=== PATIENT | female | born 1950 | race Caucasian/White ===

== ENCOUNTER 2017-05-27 07:08 | Inpatient (IN) | payer BC, OTHER ==
[~2017-05-27] VITALS: Ht 177.8 cm; Wt 123.3 kg
[~2017-05-27 07:08] MED LIST: CPR500 PO; MIRA1TAB3 PO; OMEP20CA9 OR; RISP-99 PO; SIMV20TA2 PO; WARF5TAB90 PO
[2017-05-27 13:15] VITALS: BP 147/84; PULSE 74; TEMP 36.9; O2SAT 93; Ht 177.8 cm; Wt 123.3 kg
[2017-05-27] MEDS ORDERED: MoRPHine SULFATE 2 MG/ML CARP IV PRN (13:30)
[2017-05-27] MEDS ORDERED: NITROGLYCERIN 0.4 MG SL PER TAB CHARGE SL PRN (13:30)
[2017-05-27] MEDS ORDERED: VANCOMYCIN CONSULT ACTIVE PRN (13:30)
[2017-05-27] MEDS ORDERED: ONDANSETRON INJ 2 MG/ML 2 ML VIAL IV PRN (13:30)
[2017-05-27] MEDS ORDERED: POLYETHYLENE (MIRALAX) 17 GM PACK PO PRN (13:30)
[2017-05-27] MEDS ORDERED: TAMS0.4C38 PO (13:44)
[2017-05-27] MEDS ORDERED: RANI150C4 PO (13:44)
[2017-05-27] MEDS ORDERED: SERT50TA PO (13:44)
[2017-05-27] MEDS ORDERED: MOML PO (13:44)
[2017-05-27] MEDS ORDERED: CHLO0.122 PO (13:44)
[2017-05-27] MEDS ORDERED: ARTIOIN OP (13:44)
[2017-05-27] MEDS ORDERED: AZIT250T PO (13:44)
--- NOTE | 2017-05-27 14:02 | History and Physical ---
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 Pt presents from [facility] as direct transfer for management of NSTEMI, Left lower lobe pneumonia, and urinary tract infection. The patient is a resident of [facility] The patient notes her symptoms initially began last Wednesday, with increasing cough and shortness of breath with any movement. She was placed on a z-pack at that time which she started Wednesday morning. She reports slight worsening of shortness of breath, nonproductive cough, low grade fever of 100degrees, and was found to be hypoxic on room air at 80%, she was placed on 2L and improved to 88% at [facility]. CXR indicated pulmonary edema in the right, along with patchy infiltrate on the LLL. The patients main complaint at this time is fatigue. Lactic acid was negative at 0.8. She was not placed on fluids due to pulmonary edema. EKG was completed and showed ST wave inversions in the anterior and inferior leads. She denies any type of chest pain, tightness, palpitation of flutter. She has no reproducible chest pain on exam. Her initial Trop at 0428 was 0.92. She was not started on anticoagulation at [facility]. Her last hgb was completed on 04/13 and was 11.3, and with am labs was 10.5. Her INR was therapeutic at 2.02 and received the last dose of coumadin last evening. Past Medical/Surgical History Medical Problems: (1) CVA (cerebral vascular accident) (2) ILIANA (generalized anxiety disorder) (3) GERD (gastroesophageal reflux disease) (4) HLD (hyperlipidemia) (5) Hypothyroidism (6) late effect from hx of CVA (7) MDD (major depressive disorder) (8) need to r/o CVA, frequent fall (9) Vaginal bleeding Surgical Problems: (1) History of hysterectomy (2) Hx of appendectomy Social History Smoking Status: Former Smoker Smokeless Tobacco Use: No Alcohol Use: none Drug Use: none Marital Status: Housing status: snf Occupational Status: retired Immunizations History of Influenza Vaccine: N/A History of Tetanus Vaccine?: No History of Pneumococcal: No History of Hepatitis B Vaccine: No Multi-Drug Resistant Organisms History of MDRO: No Allergies Coded Allergies: No Known Allergies (Verified , 01/09/14) Home Medications Scheduled Artificial Tears Oph Oint (Lacri-Lube Sop Oph Oint), 1 DROP OP TID Azithromycin (Zithromax), 250 MG PO DAILY Chlorhexidine Gluconate (Mouth (Periogard), 30 ML PO HS Ciprofloxacin (Cipro), 500 MG PO BID Mirabegron (Myrbetriq Er), 50 MG PO DAILY Omeprazole (Prilosec), 20 MG OR DAILY Ranitidine Hcl (Ranitidine Hcl), 1 CAP PO DAILY Risperidone (Risperidone), 0.5 MG PO BID Sertraline (Zoloft), 1 TAB PO DAILY Simvastatin (Zocor), 20 MG PO QPM Warfarin Sodium (Coumadin), 5 MG PO DAILY Scheduled PRN Furosemide (Lasix), 1 TAB PO DAILY PRN for edema Miscellaneous Medications Magnesium Hydroxide (Milk Of Magnesia), 30 ML PO Tamsulosin Hcl (Flomax), 0.4 MG PO Review of Systems Constitutional: + fever, + fatigue, No chills, No sweats Eyes: No worsening of vision ENT: + problem reported (dry mouth), No unusual epistaxis, No nasal symptoms, No sore throat, No tinnitus, No trouble swallowing Respiratory: + cough, + wheezing, + dyspnea on exertion, + dyspnea at rest, No sputum Cardiovascular: No chest pain, No orthopnea, No palpitations Abdomen: + problem reported (last BM was 2 nights ago), No pain, No nausea, No vomiting, No diarrhea, No constipation Musculoskeletal: + swelling (chronic in LLE), + problem reported, No joint pain Genitourinary - Female: + urinary incontinence, No dysuria, No urinary frequency, No urinary urgency Neurologic: + problem reported (left sided hemiplegia), No numbness/tingling Psychiatric: + depression symptoms, + anxiety Endocrine: + fatigue Integumentary: No rash, No itch Physical Exam Vital Signs Date Time Temp Pulse Resp B/P (MAP) Pulse Ox O2 Delivery O2 Flow Rate FiO2 05/27/17 13:15 36.9 74 22 147/84 General Appearance: WD/WN, no apparent distress, + obese, + pertinent finding ( left sided facial droop, chronic, seems to keep left eye shut) Eyes: PERRL, + abnormal EOM (has difficulty concentrating gaze), + pertinent finding (MMM) ENT: hearing grossly normal, pharynx normal Neck: supple, no JVD, no carotid bruits Respiratory/Chest: + pertinent finding (on 2 L via NC, + coarse rales throughout the right field and left upper field, + diminished breath sounds in Left base, + faint expiratory wheeze, + nonproductive cough) Cardiovascular: regular rate, rhythm, no JVD, normal peripheral pulses, + systolic murmur (faint) Abdomen/GI: normal bowel sounds, non tender, soft Extremities/Musculoskelatal: normal inspection, no calf tenderness, + pertinent finding (Bilateral LE edema, R= 1+ pitting, L= 2+ pitting) Neurologic/Psych: alert, normal mood/affect, oriented x 3 Skin: normal color, warm/dry Diagnostics Laboratory Results Results Past 24 Hours Test 05/27/17 13:22 05/27/17 13:39 05/27/17 13:56 Range/Units Microbiology Results 05/27/17 Blood Culture, Ordered Pending 05/27/17 Blood Culture, Ordered Pending 05/27/17 MRSA DNA Surveillance Screen, Received Pending EKG Normal sinus rhythm ST & T wave abnormality, consider inferior ischemia Abnormal ECG When compared with ECG of 09-JAN-2014 17:10, T wave inversion now evident in Inferior leads T wave inversion now evident in Anterior leads Vent. 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 Pt presents from [facility] as direct transfer for management of NSTEMI, Left lower lobe pneumonia, and urinary tract infection. NSTEMI - EKG was completed and showed ST wave inversions in the anterior and inferior leads. She denies any type of chest pain, tightness, palpitation of flutter. She has no reproducible chest pain on exam. - initial Trop at 0428 was 0.92. Trend x 2 more sets - She was not started on other anticoagulation at [facility]. Her last hgb was completed on 04/13 and was 11.3, and with am labs was 10.5. Pt has hx of GI bleed with jag weisse tear per EGD done during last admit at OSH Apr 08-. - On coumadin: INR =2.02, received the last dose of coumadin last evening. Home dosing is 5 mg daily. - Check Echo - Cardiology consult LLL pneumonia - Started on Levaquin at OSH, continue. Will also add vancomycin pending MRSA swab since she is a SNF resident - [place], mucinex, O2 protocol - Check portable CXR now, OSH CXR indicated pulmonary edema in the right, along with patchy infiltrate on the LLL. - WBC was 7.9, lactic acid neg at 0.8, negative flu at OSH- follow AM labs UTI - Pt reports chronic incontinence - UA from OSH is dirty, will need to follow up with culture/sensitivity results within 48 hours. Hx R CVA with residual left sided hemiparesis/hemiplegia - Continue statin therapy, continue Coumadin, follow INR - Bed rest, frequent turn and repo to avoid pressure ulcers - Stable Hx GI bleed - Continue on omeprazole 20 mg daily, ranitidine 150 mg tab -- caution for GI bleed if alternative anticoagulation per Cardiology MDD ILIANA - Continue sertraline 50 mg daily, risperdal 0.5 mg bid DVT ppx: Teds, scds, Coumadin CODE STATUS: DNR Disposition: The patient is a resident of [facility], to assist with dc planning. Resident Physician Supervision Note: Pt evaluated independently. I discussed the case with the PA and agree with the findings and plan as documented in the note. Any exceptions or clarifications are listed here: 66 y/o F Hx CVA - left sided hemiparesis, HLD, hypothyroidism, morbid obesity, GERD, recent hx of GI bleed on Coumadin due to MW tear - direct admission form [facility] due to PNM, UTI, NSTEMI. OE AAO x 3 S1,2 R Limited lung exam due to habitus and coarse air noises - no clear crackles or wheezing NT, ND BL edema present L hemiparesis P: Elevated trop - NSTEMI - Pt is anticoagulated with Coumadin - trop is marginal so may be consistent with demand in presence of PNM - echo ordered, cardio consult requested - cont Statin Tx - trop will be trended. PNM - placed on Levaquin Vanc due to [place] residence - [facility] provided - 02 protocol UTI - should be covered by prescribed antibiotics Documented By: Juan Antonio Wiggins Level of Care Telemetry Advanced Directives Existing Advance Directive: Yes Existing Living Will: Yes Existing Power of Under Trimmer: Yes Existing Health Care Proxy: Yes Resuscitation Status DO NOT RESUSCITATE VTE Prophylaxis VTE Risk Assessment Done? Y/N: Yes Risk Level: Low Given or contraindicated: T.E.D. Stockings, SCD's
--- NOTE | 2017-05-27 14:22 | DIAGNOSTIC IMAGING REPORT ---
CHEST ONE VIEW PORTABLE CLINICAL HISTORY: asses pulm edema COMPARISON STUDY: 05/27/2017 5:42 AM FINDINGS: Stable findings of pulmonary edema. Superimposed density left lung base. Mild stable cardia megaly. IMPRESSION: Stable findings of pulmonary edema. Unchanging consolidative infiltrate versus lesion left base. The above report was generated using voice recognition software. It may contain grammatical, syntax or spelling errors. Electronically signed by: Theodore Barragan M.D. 05/27/2017 2:20 PM Dictated Date/Time: 05/27/2017 2:19 PM
[2017-05-27] MEDS ORDERED: WARF5TAB90 PO (14:32)
[2017-05-27] MEDS ORDERED: FURO-85 PO (14:32)
[2017-05-27] MEDS ORDERED: VANCOMYCIN INJ 2,750 MG in SODIUM CHLORIDE 0.9% 500ML 500 ML IV SCH (14:45)
[2017-05-27 14:46] VITALS: PULSE 72; O2SAT 94
--- NOTE | 2017-05-27 14:52 | Pharmacy Progress Note ---
Pharmacy Abx Initial Consult Date of Service May 27, 2017. Pharmacy Dosing Scope Date of Consult: 05/27/17 Consultation requested by: Mitchell Weems PAC Pharmacy is consulted to initiate IV VANCOMYCIN therapy, order appropriate labs and adjust drug dose/frequency. Subjective The patient is a 66 year old female admitted on May 27, 2017 at 13:16 as a direct admit from [facility] secondary to NSTEMI, LLL PNA and UTI Objective Height (Feet): 5 Height (Inches): 10.00 Weight (Kilograms): 127.800 Vital Signs (Past 12Hrs) Vital Signs Past 12 Hours Date Time Temp Pulse Resp B/P (MAP) Pulse Ox O2 Delivery O2 Flow Rate FiO2 05/27/17 13:15 36.9 74 22 147/84 93 Nasal Cannula 3.0 Lab Results (24Hrs) Laboratory Tests (24 Hours) Test 05/27/17 14:15 Micro Results Date/Time Source Procedure Growth Status 05/27/17 14:14 Blood Blood Culture Pending Received 05/27/17 13:53 Blood Blood Culture Pending Received 05/27/17 13:30 Nasal MRSA DNA Surveillance Screen Pending Received Risk Factors for Resistance * Resident in a longterm or extended-care facility * Antimicrobial use within the last 90 days (Azithromycin 2 days PAINTER SET, and possibly Cipro?) Assessment & Plan Assessment * 66 year old female transferred from [facility] for LLL pneumonia, UTI and NSTEMI * I did contact [facility], the only ABX therapy she has received thus far is Levofloxacin 750mg IV x 1 this AM * [facility] reported a SCr of 0.6. She does have h/o CVA and L hemiparesis. Est CrCl likely 120+ cc/min but difficult to estimate w/ this body habitus * Sat 93% 3 L NC, no hypotension noted * CXR read as pulm edema, + consolidative infiltrate vs lesion of L base * Blood Cx's and nasal swab for MRSA ordered Plan Vancomycin IV * Loading dose: 2750 mg (~21.5 mg/kg) * Maintenance dose: 1750 mg IV (13.7 mg/kg) every 10 hours * Goal trough level for pulm infxn : 15 to 20 mcg/mL * Trough level ordered w/ 3rd or 4th maintenance dose if therapy to continue * p'kinetic estimates: Vd 0.55-0.6L/kg; half-life ~7-8 hours Pharmacy will continue to follow and will adjust dose/frequency as necessary. Thank you.
[2017-05-27 15:25] LABS: ALBUMIN 2.9 gm/dl (3.4-5.0); ALKALINE PHOSPHATASE 80 U/L (45-117); ALT/SGPT 38 U/L (12-78); AST/SGOT 31 U/L (15-37); TOTAL PROTEIN 7.2 gm/dl (6.4-8.2)
[2017-05-27 15:38] LABS: INR 2.1 (0.9-1.1)
[2017-05-27 16:00] VITALS: BP 154/84; PULSE 77; TEMP 36.9; O2SAT 92
[2017-05-27] MEDS ORDERED: LEVOFLOXACIN / D5W 750 MG in PREMIXED IN D5W 150 ML IV SCH (16:00)
[2017-05-27] MEDS: WARFARIN SOD 5 MG TAB PO SCH (16:09)
[2017-05-27 16:19] LABS: HEMATOCRIT 33.1 % (37-47); HEMOGLOBIN 10.6 g/dL (12.0-16.0); MEAN CELL VOLUME 90.9 fL (80-100); MEAN CORPUSCULAR HEMOGLOBIN 29.1 pg (25-34); MEAN PLATELET VOLUME 10.1 fL (7.4-10.4); PLATELET COUNT 241 K/uL (130-400); RED CELL DISTRIBUTION WIDTH CV 14.4 % (11.5-14.5); WHITE BLOOD COUNT 8.02 K/uL (4.8-10.8)
--- NOTE | 2017-05-27 19:03 | CARDIOLOGY CONSULTATION ---
DATE OF CONSULTATION: 05/27/2017 TIME: 18:08 p.m. ORDERING CLINICIAN: Cyndy Weems PA-C REASON FOR CONSULTATION: Non-ST elevation myocardial infarction. HISTORY OF PRESENT ILLNESS: Mrs. Pereira is a pleasant 66-year-old female with history significant for stroke x2, dyslipidemia, and recent GI bleed secondary to Ariana-Taylor tear following episodes of vomiting. She presented to [facility] and was transferred from that facility to this facility today due to non-ST elevation myocardial infarction. She has been diagnosed with a left lower lobe pneumonia and urinary tract infection. She resides at a fdc over the past several years due to her stroke. She denied any chest pain, but has had increasing shortness of breath and cough over the past 4 days. Her breathing is much worse when trying to lay flat. She is sitting currently in bed with her had quite elevated due to her shortness of breath. She does have a productive cough with yellow/light green sputum. She also has noted some bloody mucus when blowing her nose. She has had low grade fevers since Wednesday, 2 days ago. She has also noted episodes of diaphoresis and feeling hot, but denies any shaking chills. She denies syncope, near syncope, palpitations. She has chronic left lower extremity edema which she believes is stable but has been told that she now has right lower extremity edema. She was found to be hypoxic on room air, apparently 80% and was placed on supplemental oxygen. A chest x-ray done at [facility] reported pulmonary edema on the right side with patchy infiltrate on the left lower lobe. She had a troponin drawn and was found to be elevated at 0.92. She has been taking Coumadin chronically ever since her stroke as far as she can remember. She does not recall ever being diagnosed with atrial fibrillation or flutter. She does not believe that she follows with a high worker as an outpatient. She does not recall ever having a cardiac catheterization or stress test. In regards to her GI bleed, this occurred in April when she was hospitalized in 04/08/2017 to 04/12/2017 with hematemesis/coffee emesis. She describes having several episodes of vomiting before developing a small amount of blood with her 1 or 2 last episodes of vomiting. She apparently underwent EGD and was apparently found to have a Ariana-Taylor tear. She was on anticoagulation, which was reportedly held for approximately 1 week following the bleed but then restarted. She had been treated over the past 2 days with a Z-TIFFANY, but has not noted any improvement in her symptoms. REVIEW OF SYSTEMS: As above and review of systems otherwise negative/unremarkable. PAST MEDICAL HISTORY: 1. Stroke x2. 2. Chronic anticoagulation following her stroke. 3. Anxiety disorder. 4. GERD. 5. Dyslipidemia. 6. Hypothyroidism. 7. Major depressive disorder. 8. Ariana-Taylor tear April 2017. 9. Status post hysterectomy. 10. Status post appendectomy. HOME MEDICATIONS: Reported as azithromycin, ciprofloxacin, omeprazole, risperidone, sertraline, simvastatin 20 mg and Coumadin. She does not recall who manages her Coumadin. INPATIENT MEDICATIONS: Currently include needles oxytocin 750 mg IV q. 12 hours, Protonix 40 mg daily, ranitidine 150 mg daily, risperidone 0.5 mg p.o. b.i.d., simvastatin 20 mg daily, Zoloft 50 mg daily, vancomycin 1.75 mg IV q. 10 hours and Coumadin 5 mg daily. ALLERGIES: No known drug allergies. SOCIAL HISTORY: She quit smoking a few years ago at the time of her stroke. She denies alcohol or drugs. She is . Her lives at home alone while she currently resides at [facility]. She has 3 children. FAMILY HISTORY: Mother had diabetes and from some type of heart disorder at the age of approximately 80 years. PHYSICAL EXAMINATION: VITAL SIGNS: Temperature 36.9 degrees, heart rate 77 beats per minute, respiration rate 16, blood pressure 154/84 mmHg, oxygen saturation is 92% on 4 liters per nasal cannula. Weight 127.8 kg. GENERAL: In no acute distress, alert and oriented. HEENT: Anicteric sclerae. NECK: JVD to the mandible sitting nearly upright. No bruits were auscultated; however, there are coarse airway sounds Normal carotid upstrokes bilaterally. CARDIAC EXAMINATION: PMI was nonpalpable. There was no ventricular heave. Regular, normal S1, S2. No audible murmurs, rubs or gallops. LUNGS: Decreased breath sounds throughout with scattered rhonchi. ABDOMEN: Obese, soft, nontender, nondistended. Normoactive bowel sounds. EXTREMITIES: 2+ radial pulses bilaterally. 2+ dorsalis pedis pulses bilaterally. No cyanosis. 2+ bilateral pedal edema and otherwise 1+ bilateral lower extremity edema to the knees. PSYCHIATRIC: Affect appears appropriate. ECG upon presentation demonstrated sinus rhythm at 70 beats per minute. Nonspecific ST/T wave abnormality. ECG personally reviewed. Chest x-ray image personally reviewed. Left lung opacity. Prominent vascular markings. Radiology has interpreted this as pulmonary edema and unchanging consolidative infiltrative process versus lesion in the left base lung. LABORATORY DATA: AST 31, ALT 38, troponin 0.739, albumin 2.9. WBC 8.02, hemoglobin 10.6, platelets 241. INR is 2.1. Blood cultures are currently pending. Most recent echocardiogram is on file was from 01/10/2014. This reported normal biventricular systolic function. No significant valvular abnormalities. ASSESSMENT AND PLAN: 1. Acute diastolic congestive heart failure: She appears to be hypervolemic on exam and is symptomatic. Recommend IV Lasix 40 mg IV b.i.d. for now and reassess volume status and diuretic response. Low sodium diet, strict I's and O's and daily weights as recommended. TSH ordered. 2. Shortness of breath: Likely multifactorial. She also is being treated for pneumonia and has had low grade fevers and does appear to have an infiltrate on chest x-ray. Treatment as per primary service. 3. Non-ST elevation myocardial infarction: Her troponin levels are elevated and do meet criteria for myocardial infarction; however, she did not present with angina and did not present with acute coronary syndrome. This is likely secondary to demand ischemia with infection and also hypervolemia. Recommend aspirin 81 mg daily as she does have risk factors for underlying coronary artery disease, if there are no contraindications to aspirin therapy. Recommend high intensity statin therapy in place of simvastatin for her dyslipidemia. There is no indication for urgent cardiac catheterization at this time. Recommend treatment of her other acute issues. Echocardiogram is pending. 4. Hypertension: Blood pressure is mildly elevated. Diuretic is recommended, which may improve her blood pressure. Would not initiate beta guilherme therapy currently in her hypervolemic state with acute congestive heart failure exacerbation. 5. Dyslipidemia: Replace simvastatin with high intensity statin in the form of atorvastatin. 6. Disposition: Cardiology will continue to follow. Highly complex medical issues. The patient's care has been discussed with Ms. Weems. Thank for allowing me to participate in care of Mrs. Pereira.
[2017-05-27] MEDS: FUROSEMIDE INJ 40 MG in SYRINGE 0 ML IV SCH (19:12)
[2017-05-27] MEDS: LEVALBUTEROL 1.25MG/3ML NEB INH SCH (19:50)
[2017-05-27 19:52] VITALS: PULSE 87; O2SAT 95
[2017-05-27 20:00] VITALS: O2SAT 95
[2017-05-27] MEDS ORDERED: SIMVASTATIN 20 MG TAB PO SCH (21:00)
[2017-05-27 21:08] VITALS: BP 151/80; PULSE 75; TEMP 36.9; O2SAT 94
[2017-05-27] MEDS: ACETAMINOPHEN 325 MG TAB PO PRN (21:41)
[2017-05-27] MEDS: ATORVASTATIN 40 MG TAB PO SCH (21:42)
[2017-05-27] MEDS: RISPERIDONE 0.5 MG TAB PO SCH (21:42)
[2017-05-27] MEDS: GUAIFENESIN 600 MG TABCR PO SCH (21:42)
[2017-05-28] VITALS (11 sets, daily range): BP systolic 125–163; BP diastolic 64–104; PULSE 61–81; TEMP 36.4–37; O2SAT 90–97
[2017-05-28] MEDS: LEVALBUTEROL 1.25MG/3ML NEB INH SCH ×4 (01:46→19:12)
[2017-05-28] MEDS ORDERED: VANCOMYCIN INJ 1,750 MG in SODIUM CHLORIDE 0.9% 500ML 500 ML IV SCH (02:00)
[2017-05-28] MEDS ORDERED: LEVOFLOXACIN / D5W 750 MG in PREMIXED IN D5W 150 ML IV SCH (06:00)
[2017-05-28 06:46] LABS: BASO % 0.1 %; BASO ABS # 0.01 K/uL (0-0.2); HEMATOCRIT 33.9 % (37-47); HEMOGLOBIN 10.6 g/dL (12.0-16.0); IG# 0.04 K/uL (0.00-0.02); LYMPH % 20.2 %; LYMPH ABS # 1.73 K/uL (1.2-3.4); MEAN CELL VOLUME 92.1 fL (80-100); MEAN CORPUSCULAR HEMOGLOBIN 28.8 pg (25-34); MEAN CORPUSCULAR HGB CONC 31.3 g/dl (32-36); MEAN PLATELET VOLUME 10.2 fL (7.4-10.4); MONO % 7.9 %; MONO ABS # 0.68 K/uL (0.11-0.59); NEUT % 71.3 %; NEUT ABS # 6.11 K/uL (1.4-6.5); PLATELET COUNT 234 K/uL (130-400); RED CELL DISTRIBUTION WIDTH CV 14.4 % (11.5-14.5); RED CELL DISTRIBUTION WIDTH SD 49.3 fL (36.4-46.3); WHITE BLOOD COUNT 8.57 K/uL (4.8-10.8)
[2017-05-28 06:59] LABS: INR 2.5 (0.9-1.1)
[2017-05-28] MEDS ORDERED: PERFLUTREN LIPID MICROSPHERE (DEFINITY) IV ONE (07:05)
[2017-05-28 07:12] LABS: HEMOGLOBIN A1C 5.8 % (4.5-5.6)
[2017-05-28 07:13] LABS: CALCIUM 7.8 mg/dl (8.5-10.1); CREATININE 0.74 mg/dl (0.60-1.20); POTASSIUM 3.3 mmol/L (3.5-5.1)
[2017-05-28] MEDS: GUAIFENESIN 600 MG TABCR PO SCH ×2 (07:42→21:29)
[2017-05-28] MEDS: RANITIDINE HCL 150 MG TAB PO SCH (07:43)
[2017-05-28] MEDS: ASPIRIN 81 MG ECTAB PO SCH (07:43)
[2017-05-28] MEDS: SERTRALINE HCL 50 MG TAB PO SCH (07:43)
[2017-05-28] MEDS: RISPERIDONE 0.5 MG TAB PO SCH ×2 (07:43→21:29)
[2017-05-28] MEDS: PANTOprazole SOD 40 MG TAB PO SCH (07:43)
[2017-05-28] MEDS: MIRABEGRON ER 25 MG TAB PO SCH (07:43)
[2017-05-28] MEDS: FUROSEMIDE INJ 40 MG in SYRINGE 0 ML IV SCH ×2 (07:44→16:28)
--- NOTE | 2017-05-28 08:10 | Family Medicine Progress Note ---
Progress Note Date of Service May 28, 2017.
[2017-05-28] MEDS ORDERED: POTASSIUM CHLORIDE 20 MEQ TABCR PO STA (08:38)
--- NOTE | 2017-05-28 10:41 | DIAGNOSTIC IMAGING REPORT ---
CHEST ONE VIEW PORTABLE CLINICAL HISTORY: follow-up congestion + left infiltrate pneumonia COMPARISON STUDY: 05/27/2017 FINDINGS: Unchanging parenchymal infiltrative process left lung base. Mild improvement of the patient's component of congestive failure/pulmonary edema. Slight decrease in prominence of the pulmonary vasculature. IMPRESSION: 1. Slight improvement of the findings of congestive failure. 2. Unchanging left basilar infiltrate. The above report was generated using voice recognition software. It may contain grammatical, syntax or spelling errors. Electronically signed by: Theodore Barragan M.D. 05/28/2017 10:40 AM Dictated Date/Time: 05/28/2017 10:39 AM
--- NOTE | 2017-05-28 12:12 | ECHOCARDIOGRAM REPORT ---
*NOTICE TO RECEIVING LIBERTARIAN AGENCY This information is strictly Confidential and protected under [place] law. [place] law prohibits you from making any further disclosure of this information unless further disclosure is expressly permitted by the written consent of the person to whom it pertains or is authorized by law. A general authorization for the release of medical or other information is not sufficient for this purpose. Hospital accepts no responsibility if the information is made available to any other person, INCLUDING THE PATIENT. Interpretation Summary * Name: BROOK ROBLES Study Date: 05/28/2017 06:34 AM BP: 163/104 mmHg * Patient Location: C.2E\S\E210\S\1 HR: 61 * : 1950 (M/d/yyyy) Gender: Female Height: 70 in * Age: 66 yrs Ethnicity: [place] Weight: 281 lb * Ordering Physician: Michelle Weems * Referring Physician: No Doctor, Assigned * Performed By: Gabrielle Allred RDCS * * Reason For Study: NSTEMI * BSA: 2.4 m2 * -- Conclusions -- * 1. Mildly dilated left ventricle with low-normal systolic function. EF 50-55%. No definite regional wall motion abnormalities. No left ventricular hypertrophy. Type 2 diastolic dysfunction. * 2. The left atrium is moderately dilated. * 3. There is mild mitral regurgitation. * 4. Elevated estimated right atrial pressure; 15mmHg. * 5. Technically difficult study, enhanced with IV Definity. * 6. Compared to prior study on 01/10/2014, LV systolic function is now low-normal. Procedure Details * A complete two-dimensional transthoracic echocardiogram was performed (2D, M-mode, Doppler and color flow Doppler). * A contrast injection of Definity was performed to improve assessment of LV function. * Contrast was injected into an intravenous site in the right arm. * One vial of Definity ultrasound contrast was diluted in normal saline to a total volume of 10 ml. A total of '3' ml of solution was administered during imaging. * Lot # [id number] of Definity utilized for procedure. * Expiration date 1 MAY 24. * The attending nurse who injected the contrast agent was Jay Manzo RN. Left Ventricle * Mildly dilated left ventricle with low-normal systolic function. EF 50-55%. No definite regional wall motion abnormalities. No left ventricular hypertrophy. Type 2 diastolic dysfunction. Right Ventricle * The right ventricle is normal in size and function. * The right ventricular systolic function is normal as assessed by tricuspid annular plane systolic excursion (TAPSE) (normal >1.5 cm). Atria * The left atrium is moderately dilated. * Right atrial size is normal. * There is no evidence of atrial septal defect, but resolution does not allow assessment for a patent foramen ovale. Mitral Valve * There is no mitral valve stenosis. * There is mild mitral regurgitation. Tricuspid Valve * The tricuspid valve is not well visualized. * There is no tricuspid stenosis. * Significant tricuspid regurgitation is absent. Aortic Valve * The aortic valve is trileaflet. * No hemodynamically significant valvular aortic stenosis. * No aortic regurgitation is present. Pulmonic Valve * The pulmonary valve is inadequately visualized, but the Doppler data is adequate for interpretation. * There is no pulmonic valvular stenosis. * Trace pulmonic valvular regurgitation. Great Vessels * The aortic root is normal size. * Ascending aorta of normal dimension Pericardium/Pleural * There is no pericardial effusion. Great Vessels * Dilated IVC with reduced inspiratory collapse. MMode 2D Measurements and Calculations IVSd 0.97 cm LVIDd 5.5 cm LVIDs 4.1 cm LVPWd 0.91 cm IVS/LVPW 1.1 FS 25.9 % EDV(Teich) 146.6 ml ESV(Teich) 72.7 ml EF(Teich) 50.4 % EDV(cubed) 165.2 ml ESV(cubed) 67.1 ml EF(cubed) 59.4 % LV mass(C)d 196.0 grams LV mass(C)dI 81.3 grams/m\S\2 SV(Teich) 73.9 ml SI(Teich) 30.7 ml/m\S\2 SV(cubed) 98.1 ml SI(cubed) 40.7 ml/m\S\2 Ao root diam 3.7 cm Ao root area 10.5 cm\S\2 ACS 1.8 cm LA dimension 3.1 cm asc Aorta Diam 3.1 cm LA/Ao 0.86 LVOT diam 2.0 cm LVOT area 3.2 cm\S\2 LVAd ap4 42.3 cm\S\2 LVLd ap4 8.9 cm EDV(MOD-sp4) 162.3 ml EDV(sp4-el) 170.2 ml LVAs ap4 28.1 cm\S\2 LVLs ap4 7.8 cm ESV(MOD-sp4) 83.0 ml ESV(sp4-el) 85.7 ml EF(MOD-sp4) 48.9 % EF(sp4-el) 49.7 % LVAd ap2 37.0 cm\S\2 LVLd ap2 9.0 cm EDV(MOD-sp2) 125.3 ml EDV(sp2-el) 129.9 ml LVAs ap2 21.5 cm\S\2 LVLs ap2 7.6 cm ESV(MOD-sp2) 52.4 ml ESV(sp2-el) 52.1 ml EF(MOD-sp2) 58.2 % EF(sp2-el) 59.9 % LVLd %diff 1.8 % EDV(MOD-bp) 150.7 ml LVLs %diff -0.23 % ESV(MOD-bp) 64.5 ml EF(MOD-bp) 57.2 % SV(MOD-sp4) 79.3 ml SI(MOD-sp4) 32.9 ml/m\S\2 SV(MOD-sp2) 73.0 ml SI(MOD-sp2) 30.3 ml/m\S\2 SV(MOD-bp) 86.2 ml SI(MOD-bp) 35.7 ml/m\S\2 SV(sp4-el) 84.5 ml SI(sp4-el) 35.1 ml/m\S\2 SV(sp2-el) 77.8 ml SI(sp2-el) 32.3 ml/m\S\2 Doppler Measurements and Calculations MV E max sada 98.5 cm/sec MV A max sada 63.0 cm/sec MV E/A 1.6 MV dec time 0.20 sec Ao V2 max 117.7 cm/sec Ao max PG 5.5 mmHg Ao max PG (full) 2.3 mmHg ANDRA(V,A) 2.4 cm\S\2 ANDRA(V,D) 2.4 cm\S\2 LV V1 max PG 3.2 mmHg LV V1 max 89.4 cm/sec PA V2 max 82.0 cm/sec PA max PG 2.7 mmHg PA acc slope 319.6 cm/sec\S\2 PA acc time 0.20 sec PI max sada 108.7 cm/sec PI max PG 4.7 mmHg PI dec slope 141.0 cm/sec\S\2 PI P1/2t 225.8 msec RAP systole 15.0 mmHg PA pr(Accel) -10.58 mmHg
[2017-05-28] MEDS ORDERED: METOPROLOL SUCC 25MG EXT REL TAB PO STA (12:14)
--- NOTE | 2017-05-28 12:16 | ECHOCARDIOGRAM REPORT ---
*NOTICE TO RECEIVING CONSTITUTION PARTY AGENCY This information is strictly Confidential and protected under [place] law. [place] law prohibits you from making any further disclosure of this information unless further disclosure is expressly permitted by the written consent of the person to whom it pertains or is authorized by law. A general authorization for the release of medical or other information is not sufficient for this purpose. Hospital accepts no responsibility if the information is made available to any other person, INCLUDING THE PATIENT. Interpretation Summary * Name: BROOK ROBLES Study Date: 05/28/2017 06:34 AM BP: 163/104 mmHg * Patient Location: C.2E\S\E210\S\1 HR: 61 * : 1950 (M/d/yyy) Gender: Female Height: 70 in * Age: 66 yrs Ethnicity: [place] Weight: 281 lb * Ordering Physician: Michelle Weems * Referring Physician: No Doctor, Assigned * Performed By: Gabrielle Allred RDCS * * Reason For Study: NSTEMI * BSA: 2.4 m2 * -- Conclusions -- * 1. Mildly dilated left ventricle with low-normal systolic function. EF 50-55%. No definite regional wall motion abnormalities. No left ventricular hypertrophy. * 2. The left atrium is moderately dilated. * 3. There is mild mitral regurgitation. * 4. Elevated estimated right atrial pressure; 15mmHg. * 5. Technically difficult study, enhanced with IV Definity. * 6. Compared to prior study on 01/10/2014, LV systolic function is now low-normal. Procedure Details * A complete two-dimensional transthoracic echocardiogram was performed (2D, M-mode, Doppler and color flow Doppler). * A contrast injection of Definity was performed to improve assessment of LV function. * Contrast was injected into an intravenous site in the right arm. * One vial of Definity ultrasound contrast was diluted in normal saline to a total volume of 10 ml. A total of '3' ml of solution was administered during imaging. * Lot # [id number] of Definity utilized for procedure. * Expiration date 1 MAY 24. * The attending nurse who injected the contrast agent was Jay Manzo RN. Left Ventricle * Mildly dilated left ventricle with low-normal systolic function. EF 50-55%. No definite regional wall motion abnormalities. No left ventricular hypertrophy. Type 2 diastolic dysfunction. Right Ventricle * The right ventricle is normal in size and function. * The right ventricular systolic function is normal as assessed by tricuspid annular plane systolic excursion (TAPSE) (normal >1.5 cm). Atria * The left atrium is moderately dilated. * Right atrial size is normal. * There is no evidence of atrial septal defect, but resolution does not allow assessment for a patent foramen ovale. Mitral Valve * There is no mitral valve stenosis. * There is mild mitral regurgitation. Tricuspid Valve * The tricuspid valve is not well visualized. * There is no tricuspid stenosis. * Significant tricuspid regurgitation is absent. Aortic Valve * The aortic valve is trileaflet. * No hemodynamically significant valvular aortic stenosis. * No aortic regurgitation is present. Pulmonic Valve * The pulmonary valve is inadequately visualized, but the Doppler data is adequate for interpretation. * There is no pulmonic valvular stenosis. * Trace pulmonic valvular regurgitation. Great Vessels * The aortic root is normal size. * Ascending aorta of normal dimension Pericardium/Pleural * There is no pericardial effusion. Great Vessels * Dilated IVC with reduced inspiratory collapse. MMode 2D Measurements and Calculations IVSd 0.97 cm LVIDd 5.5 cm LVIDs 4.1 cm LVPWd 0.91 cm IVS/LVPW 1.1 FS 25.9 % EDV(Teich) 146.6 ml ESV(Teich) 72.7 ml EF(Teich) 50.4 % EDV(cubed) 165.2 ml ESV(cubed) 67.1 ml EF(cubed) 59.4 % LV mass(C)d 196.0 grams LV mass(C)dI 81.3 grams/m\S\2 SV(Teich) 73.9 ml SI(Teich) 30.7 ml/m\S\2 SV(cubed) 98.1 ml SI(cubed) 40.7 ml/m\S\2 Ao root diam 3.7 cm Ao root area 10.5 cm\S\2 ACS 1.8 cm LA dimension 3.1 cm asc Aorta Diam 3.1 cm LA/Ao 0.86 LVOT diam 2.0 cm LVOT area 3.2 cm\S\2 LVAd ap4 42.3 cm\S\2 LVLd ap4 8.9 cm EDV(MOD-sp4) 162.3 ml EDV(sp4-el) 170.2 ml LVAs ap4 28.1 cm\S\2 LVLs ap4 7.8 cm ESV(MOD-sp4) 83.0 ml ESV(sp4-el) 85.7 ml EF(MOD-sp4) 48.9 % EF(sp4-el) 49.7 % LVAd ap2 37.0 cm\S\2 LVLd ap2 9.0 cm EDV(MOD-sp2) 125.3 ml EDV(sp2-el) 129.9 ml LVAs ap2 21.5 cm\S\2 LVLs ap2 7.6 cm ESV(MOD-sp2) 52.4 ml ESV(sp2-el) 52.1 ml EF(MOD-sp2) 58.2 % EF(sp2-el) 59.9 % LVLd %diff 1.8 % EDV(MOD-bp) 150.7 ml LVLs %diff -0.23 % ESV(MOD-bp) 64.5 ml EF(MOD-bp) 57.2 % SV(MOD-sp4) 79.3 ml SI(MOD-sp4) 32.9 ml/m\S\2 SV(MOD-sp2) 73.0 ml SI(MOD-sp2) 30.3 ml/m\S\2 SV(MOD-bp) 86.2 ml SI(MOD-bp) 35.7 ml/m\S\2 SV(sp4-el) 84.5 ml SI(sp4-el) 35.1 ml/m\S\2 SV(sp2-el) 77.8 ml SI(sp2-el) 32.3 ml/m\S\2 Doppler Measurements and Calculations MV E max sada 98.5 cm/sec MV A max sada 63.0 cm/sec MV E/A 1.6 MV dec time 0.20 sec Ao V2 max 117.7 cm/sec Ao max PG 5.5 mmHg Ao max PG (full) 2.3 mmHg ANDRA(V,A) 2.4 cm\S\2 ANDRA(V,D) 2.4 cm\S\2 LV V1 max PG 3.2 mmHg LV V1 max 89.4 cm/sec PA V2 max 82.0 cm/sec PA max PG 2.7 mmHg PA acc slope 319.6 cm/sec\S\2 PA acc time 0.20 sec PI max sada 108.7 cm/sec PI max PG 4.7 mmHg PI dec slope 141.0 cm/sec\S\2 PI P1/2t 225.8 msec RAP systole 15.0 mmHg PA pr(Accel) -10.58 mmHg
--- NOTE | 2017-05-28 12:27 | CARDIOLOGY PROGRESS NOTE ---
DATE: 05/28/2017 TIME: 12:09 p.m. SUBJECTIVE: She feels better from a breathing standpoint but still has orthopnea. Her breathing is significantly improved; however. She is asking when she can be discharged. She denies chest pain, syncope, near syncope, or palpitations. OBJECTIVE: VITAL SIGNS: Temperature 36.4 degrees, heart rate 70 beats per minute, respiration rate 18, blood pressure 161/91 mmHg. Oxygen saturation is 94% on room air. I's and O's negative 1.27 liters yesterday. Weight is 126.9 kg. GENERAL: No acute distress. She is alert. NECK: Elevated JVD nearly to the mandible with her head elevated at approximately 75 degrees. CARDIAC: No ventricular heave. Regular, normal S1, S2. There were no audible murmurs, rubs or gallops. LUNGS: Expiratory wheezing bilaterally. ABDOMEN: Soft, nontender, nondistended. Normoactive bowel sounds. EXTREMITIES: Trace to 1+ bilateral lower extremity edema. No cyanosis. PSYCHIATRIC: Affect appears appropriate. MEDICATIONS: Aspirin 81 mg daily, atorvastatin 40 mg at bedtime, Lasix 40 mg IV b.i.d., levofloxacin 750 mg IV q. 24 hours, potassium chloride 40 mEq x1 and then 20 mEq p.o. b.i.d., risperidone 0.5 mg p.o. b.i.d., Zoloft 50 mg daily, and Coumadin 5 mg daily. LABORATORY DATA: White blood cell count is 8.57, hemoglobin 10.6, platelets 234. INR is 2.5. Sodium 141, potassium 3.1, BUN 21, creatinine 0.74. Triglycerides 61, LDL 66, HDL 42. TSH 1.22. IMAGING DATA: Telemetry personally reviewed. She did have a nonsustained episode of what appears to be atrial tachycardia, otherwise sinus rhythm. Echocardiogram demonstrated mildly dilated left ventricle with low normal systolic function. EF 50-55%. No definite wall motion abnormalities. Moderate left atrial dilation. Mild MR. Right atrial pressure estimated at 15 mmHg. ASSESSMENT AND PLAN: 1. Non-ST elevation myocardial infarction: Likely due to demand ischemia. She did not present with acute coronary syndrome. Recommend conservative management for now with aspirin 81 mg daily. Continue high intensity statin therapy which was started during this hospitalization in place of simvastatin. Will start a low dose beta guilherme if she continues to be hypertensive. No angina. 2. Acute diastolic congestive heart failure: Continue diuresis. She feels much better with diuresis last night. Monitor potassium closely, which is being addressed by the primary hospitalist service. Low sodium diet, strict daily weights and I's and O's. 3. Shortness of breath: Likely multifactorial as she is also thought to have pneumonia and had low grade fevers as well as heart failure as noted above. 4. Hypertension: Beta guilherme therapy will be initiated today as she is doing much better from a heart failure standpoint. 5. Dyslipidemia: Continue high intensity statin therapy. 6. Mitral regurgitation: Non-severe. Can be followed over time. 7. Disposition: Cardiology will continue to follow.
[2017-05-28 12:50] LABS: INFLUENZA A PCR Neg for Influ A (NEG); INFLUENZA B PCR Neg for Influ B (NEG)
--- NOTE | 2017-05-28 14:16 | Family Medicine Progress Note ---
Progress Note Date of Service May 28, 2017. Subjective Pt evaluation today including: conversation w/ patient, physical exam, chart review, lab review Pain: None Patient reports she is feeling better since admission Denies chest pain, palpitations at this time; no events overnight Eating and drinking well No concerns per nursing. K abby this AM, is being repleted. Additional Comments: A 10 point review of systems was negative unless stated above. Medications Current Inpatient Medications Medications (Trade) Dose Ordered Sig/Gabriela Route Start Time Stop Time Status Last Admin Dose Admin Acetaminophen (Tylenol Tab) 650 mg Q4H PRN PO 05/27/17 13:30 06/26/17 13:29 05/27/17 21:41 650 MG Ondansetron HCl (Zofran Inj) 4 mg Q6H PRN IV 05/27/17 13:30 06/26/17 13:29 Nitroglycerin (Nitrostat Tab) 0.4 mg UD PRN SL 05/27/17 13:30 06/26/17 13:29 Morphine Sulfate (MoRPHine SULFATE INJ) 2 mg Q30M PRN IV 05/27/17 13:30 06/10/17 13:29 Polyethylene (Miralax Powder Packet) 17 gm DAILY PRN PO 05/27/17 13:30 06/26/17 13:29 Levalbuterol (Xopenex 1.25MG/ 3ML Neb) 1.25 mg Q6R INH 05/27/17 15:00 06/26/17 14:59 05/28/17 07:23 1.25 MG Guaifenesin (Mucinex Contr Rel Tab) 600 mg Q12 PO 05/27/17 21:00 06/26/17 20:59 05/28/17 07:42 600 MG Mirabegron (Myrbetriq Er) 50 mg DAILY PO 05/28/17 09:00 06/27/17 08:59 05/28/17 07:43 50 MG Risperidone (Risperdal Tab) 0.5 mg BID PO 05/27/17 21:00 06/26/17 20:59 05/28/17 07:43 0.5 MG Sertraline HCl (Zoloft Tab) 50 mg DAILY PO 05/28/17 09:00 06/27/17 08:59 05/28/17 07:43 50 MG Warfarin Sodium (Coumadin Tab) 5 mg DAILY@1600 PO 05/27/17 16:00 06/26/17 15:59 05/27/17 16:09 5 MG Pantoprazole Sodium (Protonix Tab) 40 mg QAM PO 05/28/17 09:00 06/27/17 08:59 05/28/17 07:43 40 MG Ranitidine HCl (zANTac TAB) 150 mg DAILY PO 05/28/17 09:00 06/27/17 08:59 05/28/17 07:43 150 MG Levofloxacin 750 mg/Prmx 150 ml @ 100 mls/hr Q24H IV 05/28/17 06:00 06/02/17 07:29 05/28/17 05:58 100 MLS/HR Furosemide 40 mg/ Syringe 4 ml @ 4 mls/min BID17 IV 05/27/17 17:30 06/26/17 17:29 05/28/17 07:44 4 MLS/MIN Aspirin (Ecotrin Tab) 81 mg QAM PO 05/28/17 09:00 06/27/17 08:59 05/28/17 07:43 81 MG Atorvastatin Calcium (Lipitor Tab) 40 mg HS PO 05/27/17 21:00 06/26/17 20:59 05/27/17 21:42 40 MG Potassium Chloride (Klor-Con Tab) 20 meq BID PO 05/28/17 21:00 06/27/17 20:59 Metoprolol Succinate (Toprol Xl Tab) 25 mg QAM PO 05/29/17 09:00 06/28/17 08:59 Objective Vital Signs Date Time Temp Pulse Resp B/P (MAP) Pulse Ox O2 Delivery O2 Flow Rate FiO2 05/28/17 12:00 Room Air 05/28/17 11:52 36.9 76 18 158/87 (110) 94 Room Air 05/28/17 08:01 36.4 70 18 161/91 (114) 94 Room Air 05/28/17 08:00 Room Air 05/28/17 07:23 61 20 93 Room Air 05/28/17 05:03 36.6 74 22 163/104 (123) 97 Nasal Cannula 3.0 05/28/17 04:00 Nasal Cannula 3.0 05/28/17 01:46 74 20 93 Nasal Cannula 3.0 05/28/17 00:00 95 Nasal Cannula 3.0 05/28/17 00:00 36.7 81 20 153/97 (115) 95 Nasal Cannula 3.0 05/27/17 21:08 36.9 75 22 151/80 (103) 94 Nasal Cannula 2.0 05/27/17 20:00 95 Nasal Cannula 4.0 05/27/17 19:52 87 18 95 Nasal Cannula 4.0 05/27/17 16:00 36.9 77 16 154/84 (107) 92 Nasal Cannula 4.0 05/27/17 14:46 72 20 94 Nasal Cannula 3.0 Physical Exam General Appearance: WD/WN, no apparent distress Eyes: normal inspection, EOMI ENT: hearing grossly normal, pharynx normal Neck: supple, no adenopathy, no JVD Respiratory/Chest: + pertinent finding (coarse breath sounds bilaterally) Cardiovascular: regular rate, rhythm, no gallop, no murmur Abdomen: normal bowel sounds, non tender, soft Extremities: non-tender, no pedal edema Neurologic/Psychiatric: alert, normal mood/affect Skin: normal color, warm/dry, no rash Lymphatic: no adenopathy Laboratory Results Last 24 Hours Test 05/27/17 14:15 05/27/17 21:52 05/28/17 06:14 05/28/17 10:08 White Blood Count 8.02 K/uL 8.57 K/uL Red Blood Count 3.64 M/uL 3.68 M/uL Hemoglobin 10.6 g/dL 10.6 g/dL Hematocrit 33.1 % 33.9 % Mean Corpuscular Volume 90.9 fL 92.1 fL Mean Corpuscular Hemoglobin 29.1 pg 28.8 pg Mean Corpuscular Hemoglobin Concent 32.0 g/dl 31.3 g/dl RDW Standard Deviation 48.0 fL 49.3 fL RDW Coefficient of Variation 14.4 % 14.4 % Platelet Count 241 K/uL 234 K/uL Mean Platelet Volume 10.1 fL 10.2 fL Prothrombin Time 21.5 SECONDS 26.1 SECONDS Prothromb Time International Ratio 2.1 2.5 Lactic Acid Level 1.4 mmol/L Total Bilirubin 0.3 mg/dl Direct Bilirubin < 0.1 mg/dl Aspartate Amino Transf (AST/SGOT) 31 U/L Alanine Aminotransferase (ALT/SGPT) 38 U/L Alkaline Phosphatase 80 U/L Troponin I 0.739 ng/ml 0.778 ng/ml 0.732 ng/ml Pro-B-Type Natriuretic Peptide 3952 pg/ml Total Protein 7.2 gm/dl Albumin 2.9 gm/dl Thyroid Stimulating Hormone (TSH) 1.220 uIu/ml Hepatitis C Antibody Screen NEG Neutrophils (%) (Auto) 71.3 % Lymphocytes (%) (Auto) 20.2 % Monocytes (%) (Auto) 7.9 % Eosinophils (%) (Auto) 0.0 % Basophils (%) (Auto) 0.1 % Neutrophils # (Auto) 6.11 K/uL Lymphocytes # (Auto) 1.73 K/uL Monocytes # (Auto) 0.68 K/uL Eosinophils # (Auto) 0.00 K/uL Basophils # (Auto) 0.01 K/uL Immature Granulocyte % (Auto) 0.5 % Immature Granulocyte # (Auto) 0.04 K/uL Sodium Level 141 mmol/L Potassium Level 3.3 mmol/L Chloride Level 107 mmol/L Carbon Dioxide Level 28 mmol/L Anion Gap 6.0 mmol/L Blood Urea Nitrogen 21 mg/dl Creatinine 0.74 mg/dl Est Creatinine Clear Calc Drug Dose 105.5 ml/min Estimated GFR () 96.5 Estimated GFR (Non- 83.2 BUN/Creatinine Ratio 28.0 Random Glucose 106 mg/dl Estimated Average Glucose 120 mg/dl Hemoglobin A1c 5.8 % Calcium Level 7.8 mg/dl Triglycerides Level 61 mg/dl Cholesterol Level 120 mg/dl HDL Cholesterol 42 mg/dl LDL Cholesterol, Calculated 66 mg/dl VLDL Cholesterol, Calculated 12 mg/dl Cholesterol/HDL Ratio 2.9 Test 05/28/17 10:46 05/28/17 11:00 Procalcitonin < 0.05 ng/ml Influenza Type A (RT-PCR) Neg for Influ A Influenza Type B (RT-PCR) Neg for Influ B Assessment and Plan 66 year old female with hx of dCHF, HTN, atrial fibrillation, depression, anxiety, and history of upper GIB, with presenting as transfer from [facility] with acute on chronic respiratory failure and NSTEMI. Our plan for her is as follows: Acute Hypoxemic Respiratory Failure - Multifactorial: combination of diastolic CHF and PNA; see below - Currently on room air; no home O2 needs; will continue to follow Acute Diastolic CHF - Diuresing well on Lasix 40 mg IV BID - Output > 2 L overnight - Clinically feels improved - CXR this morning suggestive of gradual resolution in vascular congestion - Continue daily I/O weight, and fluid status; adjust diuresis according - Repeat Echocardiogram pending - Cardiology consultation appreciated Acute Left Lower Lobe PNA - Stable infiltrate at left base unchanged today - Negative for influenza - MRSA negative; will D/C Vancomycin - Continue Levaquin monotherapy at this time NSTEMI - Stable at 0.7 x 3 - Cardiology following; recommendations appreciated - At this point, given absence of chest pain, likely due to supply/demand mismatch - Will recheck troponin in AM - Patient currently on ASA, and high-intensity Atorvatatin. Metoprolol started to for BP management, which provides adjunctive secondary protection - Currently not on ACEi; can consider addition if BP tolerates; will discuss with cardiology Hypokalemia - K 3.3 today - 40 mEq given in AM - 20 mEq BID scheduled in the setting of Lasix therapy Urinary Tract Infection - Per [facility] - Will follow cultures at [facility] providing empiric coverage Hypertension - Metoprolol started today - Re-assess daily; can titrate vs addition of ACEi; will discuss with cardiology History of Atrial Fibrillation - Continue Coumadin: goal 2-3 - Daily INR - Rate controlled on admission History of upper GI Bleed - No evidence of active bleeding right currently - Tolerating Coumadin - Continue daily Pantoprazole and Ranitidine Hx of CVA - Residual left-sided hemiparesis - Continue ASA Depression/Anxiety - Continue Sertraline - Continue Risperidone DVT Prophylaxis - SCD Knee, MEKA Hose - Coumadin Code Status - Level V Full Code Disposition - Telemetry - OT and PT evaluations Resident Physician Supervision Note: I interviewed and examined the patient. Discussed with Dr. Oropeza and agree with findings and plan as documented in the note. Any exceptions or clarifications are listed here: None Documented By: Quintin Shook feeling better breathing easier no f/c/s no pleuritic pain vitals noted nad breathing unlabored no pallor or icterus acute hypoxic respiratory failure related to CHF (diastolci) improving on diuretics concern on pneumonia - no WBC/fever, no typical signs. area of asymmetry cleared on CXR, procal low - stop abx frequent UTIs - no current sx otherwise as above Continued [facility] stay due to: abnormal vital signs Discharge planning: senior care facility
[2017-05-28] MEDS: WARFARIN SOD 5 MG TAB PO SCH (15:42)
[2017-05-28] MEDS: POTASSIUM CHLORIDE 20 MEQ TABCR PO SCH (21:29)
[2017-05-28] MEDS: ATORVASTATIN 40 MG TAB PO SCH (21:29)
[2017-05-28] MEDS ORDERED: VANCOMYCIN TROUGH ONE (21:30)
[2017-05-28] MEDS: ACETAMINOPHEN 325 MG TAB PO PRN (21:32)
[2017-05-29] VITALS (10 sets, daily range): BP systolic 109–134; BP diastolic 68–88; PULSE 60–75; TEMP 36.5–36.9; O2SAT 90–98
[2017-05-29] MEDS: LEVALBUTEROL 1.25MG/3ML NEB INH SCH ×4 (01:56→20:09)
[2017-05-29 06:59] LABS: BASO % 0.3 %; BASO ABS # 0.02 K/uL (0-0.2); EOS % 0.1 %; EOS ABS # 0.01 K/uL (0-0.5); HEMATOCRIT 34.3 % (37-47); HEMOGLOBIN 10.9 g/dL (12.0-16.0); IG# 0.03 K/uL (0.00-0.02); LYMPH % 26.3 %; LYMPH ABS # 2.08 K/uL (1.2-3.4); MEAN CORPUSCULAR HEMOGLOBIN 28.6 pg (25-34); MEAN CORPUSCULAR HGB CONC 31.8 g/dl (32-36); MEAN PLATELET VOLUME 9.6 fL (7.4-10.4); MONO % 9.6 %; MONO ABS # 0.76 K/uL (0.11-0.59); NEUT % 63.3 %; NEUT ABS # 5.02 K/uL (1.4-6.5); PLATELET COUNT 249 K/uL (130-400); RED CELL DISTRIBUTION WIDTH CV 14.7 % (11.5-14.5); RED CELL DISTRIBUTION WIDTH SD 48.6 fL (36.4-46.3); WHITE BLOOD COUNT 7.92 K/uL (4.8-10.8)
[2017-05-29 07:09] LABS: INR 2.8 (0.9-1.1)
[2017-05-29] MEDS: RANITIDINE HCL 150 MG TAB PO SCH (07:37)
[2017-05-29] MEDS: SERTRALINE HCL 50 MG TAB PO SCH (07:37)
[2017-05-29] MEDS: METOPROLOL SUCC 25MG EXT REL TAB PO SCH (07:37)
[2017-05-29] MEDS: MIRABEGRON ER 25 MG TAB PO SCH (07:38)
[2017-05-29] MEDS: ASPIRIN 81 MG ECTAB PO SCH (07:38)
[2017-05-29] MEDS: RISPERIDONE 0.5 MG TAB PO SCH ×2 (07:38→19:47)
[2017-05-29] MEDS: POTASSIUM CHLORIDE 20 MEQ TABCR PO SCH ×2 (07:38→19:47)
[2017-05-29] MEDS: GUAIFENESIN 600 MG TABCR PO SCH ×2 (07:38→19:48)
[2017-05-29] MEDS: PANTOprazole SOD 40 MG TAB PO SCH (07:38)
[2017-05-29 07:39] LABS: CREATININE 0.71 mg/dl (0.60-1.20); POTASSIUM 3.6 mmol/L (3.5-5.1)
--- NOTE | 2017-05-29 09:15 | Family Medicine Progress Note ---
Progress Note Date of Service May 29, 2017. Subjective Pt evaluation today including: conversation w/ patient, physical exam, chart review, lab review, review of studies, review of inpatient medication list Voiding: teague catheter in place Feels her shortness of breath is improving. Biggest complaint is ongoing cough ( yellow sputum). Hx urine incontinence therefore will be difficult to get I&Os without teague cath. No fevers or chills. All Other Systems: Reviewed and Negative Medications Current Inpatient Medications Medications (Trade) Dose Ordered Sig/Gabriela Route Start Time Stop Time Status Last Admin Dose Admin Acetaminophen (Tylenol Tab) 650 mg Q4H PRN PO 05/27/17 13:30 06/26/17 13:29 05/28/17 21:32 650 MG Ondansetron HCl (Zofran Inj) 4 mg Q6H PRN IV 05/27/17 13:30 06/26/17 13:29 Nitroglycerin (Nitrostat Tab) 0.4 mg UD PRN SL 05/27/17 13:30 06/26/17 13:29 Morphine Sulfate (MoRPHine SULFATE INJ) 2 mg Q30M PRN IV 05/27/17 13:30 06/10/17 13:29 Polyethylene (Miralax Powder Packet) 17 gm DAILY PRN PO 05/27/17 13:30 06/26/17 13:29 Levalbuterol (Xopenex 1.25MG/ 3ML Neb) 1.25 mg Q6R INH 05/27/17 15:00 06/26/17 14:59 05/29/17 07:18 1.25 MG Guaifenesin (Mucinex Contr Rel Tab) 600 mg Q12 PO 05/27/17 21:00 06/26/17 20:59 05/29/17 07:38 600 MG Mirabegron (Myrbetriq Er) 50 mg DAILY PO 05/28/17 09:00 06/27/17 08:59 05/29/17 07:38 50 MG Risperidone (Risperdal Tab) 0.5 mg BID PO 05/27/17 21:00 06/26/17 20:59 05/29/17 07:38 0.5 MG Sertraline HCl (Zoloft Tab) 50 mg DAILY PO 05/28/17 09:00 06/27/17 08:59 05/29/17 07:37 50 MG Warfarin Sodium (Coumadin Tab) 5 mg DAILY@1600 PO 05/27/17 16:00 06/26/17 15:59 05/28/17 15:42 5 MG Pantoprazole Sodium (Protonix Tab) 40 mg QAM PO 05/28/17 09:00 06/27/17 08:59 05/29/17 07:38 40 MG Ranitidine HCl (zANTac TAB) 150 mg DAILY PO 05/28/17 09:00 06/27/17 08:59 05/29/17 07:37 150 MG Furosemide 40 mg/ Syringe 4 ml @ 4 mls/min BID17 IV 05/27/17 17:30 06/26/17 17:29 05/28/17 16:28 4 MLS/MIN Aspirin (Ecotrin Tab) 81 mg QAM PO 05/28/17 09:00 06/27/17 08:59 05/29/17 07:38 81 MG Atorvastatin Calcium (Lipitor Tab) 40 mg HS PO 05/27/17 21:00 06/26/17 20:59 05/28/17 21:29 40 MG Potassium Chloride (Klor-Con Tab) 20 meq BID PO 05/28/17 21:00 06/27/17 20:59 05/29/17 07:38 20 MEQ Metoprolol Succinate (Toprol Xl Tab) 25 mg QAM PO 05/29/17 09:00 06/28/17 08:59 05/29/17 07:37 25 MG Objective Vital Signs Date Time Temp Pulse Resp B/P (MAP) Pulse Ox O2 Delivery O2 Flow Rate FiO2 05/29/17 08:00 Room Air 05/29/17 07:39 36.5 64 18 128/79 (95) 97 3.0 05/29/17 07:18 64 20 97 Nasal Cannula 3.0 05/29/17 04:05 Room Air 05/29/17 03:50 36.5 60 17 125/72 (89) 98 Nasal Cannula 3.0 05/29/17 00:10 Room Air 05/28/17 23:48 36.7 65 20 137/76 (96) 92 Nasal Cannula 3.0 05/28/17 20:15 Room Air 05/28/17 19:13 70 20 90 Room Air 05/28/17 19:06 37.0 66 18 125/82 (96) 91 Room Air 05/28/17 16:16 36.7 76 18 135/64 (87) 93 Room Air 05/28/17 15:53 Room Air 05/28/17 14:32 72 20 94 Room Air 05/28/17 12:00 Room Air 05/28/17 11:52 36.9 76 18 158/87 (110) 94 Room Air Physical Exam General Appearance: WD/WN, no apparent distress Eyes: normal inspection (pupils equal) Neck: no JVD Respiratory/Chest: no respiratory distress, no accessory muscle use, + crackles (bibasal), + pertinent finding (frequent coughing) Cardiovascular: regular rate, rhythm, no murmur Abdomen: normal bowel sounds, non tender, soft Extremities: no calf tenderness, normal capillary refill, + pedal edema (trace bilaterally L > R) Neurologic/Psychiatric: alert, oriented x 3, + pertinent finding (residual left sided hemiparesis (chronic)) Skin: normal color, warm/dry, no rash Laboratory Results 05/29/17 06:40 Red Blood Count 3.81, Mean Corpuscular Volume 90.0, Mean Corpuscular Hemoglobin 28.6, Mean Corpuscular Hemoglobin Concent 31.8, Mean Platelet Volume 9.6, Neutrophils (%) (Auto) 63.3, Lymphocytes (%) (Auto) 26.3, Monocytes (%) (Auto) 9.6, Eosinophils (%) (Auto) 0.1, Basophils (%) (Auto) 0.3, Neutrophils # (Auto) 5.02, Lymphocytes # (Auto) 2.08, Monocytes # (Auto) 0.76, Eosinophils # (Auto) 0.01, Basophils # (Auto) 0.02 05/29/17 06:40 Test 05/28/17 10:08 05/28/17 10:46 05/28/17 11:00 05/29/17 06:40 Troponin I 0.732 ng/ml (0-0.045) Procalcitonin < 0.05 ng/ml (0-0.5) Influenza Type A (RT-PCR) Neg for Influ A (NEG) Influenza Type B (RT-PCR) Neg for Influ B (NEG) White Blood Count 7.92 K/uL (4.8-10.8) Red Blood Count 3.81 M/uL (4.2-5.4) Hemoglobin 10.9 g/dL (12.0-16.0) Hematocrit 34.3 % (37-47) Mean Corpuscular Volume 90.0 fL (80-100) Mean Corpuscular Hemoglobin 28.6 pg (25-34) Mean Corpuscular Hemoglobin Concent 31.8 g/dl (32-36) Platelet Count 249 K/uL (130-400) Mean Platelet Volume 9.6 fL (7.4-10.4) Neutrophils (%) (Auto) 63.3 % Lymphocytes (%) (Auto) 26.3 % Monocytes (%) (Auto) 9.6 % Eosinophils (%) (Auto) 0.1 % Basophils (%) (Auto) 0.3 % Neutrophils # (Auto) 5.02 K/uL (1.4-6.5) Lymphocytes # (Auto) 2.08 K/uL (1.2-3.4) Monocytes # (Auto) 0.76 K/uL (0.11-0.59) Eosinophils # (Auto) 0.01 K/uL (0-0.5) Basophils # (Auto) 0.02 K/uL (0-0.2) RDW Standard Deviation 48.6 fL (36.4-46.3) RDW Coefficient of Variation 14.7 % (11.5-14.5) Immature Granulocyte % (Auto) 0.4 % Immature Granulocyte # (Auto) 0.03 K/uL (0.00-0.02) Prothrombin Time 28.8 SECONDS (9.0-12.0) Prothromb Time International Ratio 2.8 (0.9-1.1) Anion Gap 7.0 mmol/L (3-11) Est Creatinine Clear Calc Drug Dose 109.2 ml/min Estimated GFR () 101.4 Estimated GFR (Non- 87.5 BUN/Creatinine Ratio 35.1 (10-20) Calcium Level 8.0 mg/dl (8.5-10.1) Assessment and Plan 66 year old female with hx of dCHF, HTN, depression, anxiety, and history of UGI bleed transfer from [facility] with acute on chronic respiratory failure and NSTEMI Acute Hypoxemic Respiratory Failure - diastolic heart failure, less likely pneumonia therefore will d/c levaquin - Use flutter valve, incentive spirometry and guaifenesin for cough - Speech and language to assess for aspirations, Hx of coughing with eating Acute Diastolic CHF - Diuresing well on Lasix 40 mg IV BID - Output > 2 L last 24 hours - Echo LVEF 50-55% - Cardiology consultation appreciated Type 2 NSTEMI / CAD - supply/demand mismatch - Cont ASA, Atorvastatin, Metoprolol, hold off ACEi while on IV diuretics Hypokalemia - secondary to lasix use - trend, replace as necessary Urinary Tract Infection - Follow up culture at [facility] Hypertension - Continue metoprolol History of upper GI Bleed - stable Hgb - Tolerating Coumadin - Continue daily Pantoprazole and Ranitidine Hx of CVA - unclear exact reason for warfarin but has been on this since her previous CVA , aim 2-3 - Residual left-sided hemiparesis Depression/Anxiety - Continue Sertraline - Continue Risperidone VTE Prophylaxis - SCD Knee, MEKA Whytee - Warfarin Code Status - DNR Disposition - Telemetry - OT and PT evaluations Resident Physician Supervision Note: I interviewed and examined the patient. Discussed with Dr. Leonardo and agree with findings and plan as documented in the note. Any exceptions or clarifications are listed here: None Documented By: Quintin Shook feeling better breathing better vitals noted nad breathing unlabored faint base rales acute on chronic CHF type 2 IA doing better med management maybe return to SNF 1 -2 days hopefully Resident Tracking Resident Involvement: Resident Care Provided Care Provided: Adult Hospital Medicine
[2017-05-29] MEDS: FUROSEMIDE INJ 40 MG in SYRINGE 0 ML IV SCH ×2 (09:37→17:12)
--- NOTE | 2017-05-29 11:51 | CARDIOLOGY PROGRESS NOTE ---
DATE: 05/29/2017 TIME: 10:45 a.m. SUBJECTIVE: Ms. Pereira feels better each day. Her breathing continues to improve. She still has a cough. She denies chest pain, syncope, near syncope, or palpitations. OBJECTIVE: VITAL SIGNS: Temperature 36.5 degrees, heart rate 64 beats per minute, respiration rate 18, blood pressure 128/79 mmHg, oxygen saturation 97% on 3 liters per nasal cannula. I's & O's negative 1.96 liters yesterday. Weight is 125.2 kg. GENERAL: No acute distress. She is alert. NECK: Mild JVD. CARDIAC EXAM: No ventricular heave. Regular, normal S1, S2. There were no audible murmurs, rubs or gallops. LUNGS: Coarse breath sounds in bilateral lung anand. ABDOMEN: Soft, nontender, nondistended. Normoactive bowel sounds. EXTREMITIES: Edema has improved. Trace to 1+ left lower extremity edema. Trace right lower extremity edema. No cyanosis. PSYCHIATRIC: Affect appears appropriate. MEDICATIONS: Include aspirin 81 mg daily, atorvastatin 40 mg at bedtime, Lasix 40 mg IV b.i.d., metoprolol succinate 25 mg daily, potassium chloride 20 mEq p.o. b.i.d., Coumadin 5 mg daily. LABORATORY DATA: White blood cell count 7.92, hemoglobin 10.9, platelets 249. INR 2.8. Sodium 139, potassium 3.6, BUN 25, creatinine 0.71. IMAGING STUDIES: Echocardiogram yesterday demonstrated mildly dilated left ventricle with low normal systolic function. EF 50%-55%. No definite regional wall motion abnormalities. No LVH. Moderate left atrial dilation. Mild MR. Right atrial pressure was elevated with an estimation of 15 mmHg. ASSESSMENT AND PLAN: 1. Non-ST elevation myocardial infarction: She did not present with acute coronary syndrome. She may have underlying coronary artery disease. Continue with aspirin 81 mg daily and high-intensity statin therapy. Continue beta guilherme. She prefers medical therapy for now. No urgent indication for cardiac catheterization. Can reassess her symptoms and consider myocardial perfusion study as an outpatient after she is optimized with her heart failure and treated for her pneumonia. 2. Acute diastolic congestive heart failure: She is improving on a daily basis with diuresis. She is diuresing nicely on current dose of Lasix 40 mg IV twice daily. Continue low-sodium diet, strict I's and O's and daily weights. 3. Shortness of breath: Likely multifactorial from congestive heart failure and also was thought to have pneumonia with low-grade fevers. She has been on antibiotics as per primary service. Length of antibiotic therapy as per hospitalist service. 4. Hypertension: Beta guilherme started yesterday. Blood pressure has improved with beta guilherme and diuretic. Continue current regimen for now. 5. Dyslipidemia: Continue high-intensity statin therapy. 6. Mitral regurgitation: Non-severe. This can be followed over time as an outpatient. 7. Disposition: Cardiology will continue to follow. She can be transferred from telemetry from a cardiology standpoint.
[2017-05-29] MEDS: WARFARIN SOD 5 MG TAB PO SCH (17:12)
[2017-05-29] MEDS: ATORVASTATIN 40 MG TAB PO SCH (19:47)
[2017-05-29] MEDS: ACETAMINOPHEN 325 MG TAB PO PRN (19:51)
[2017-05-30] VITALS (13 sets, daily range): BP systolic 104–144; BP diastolic 66–83; PULSE 60–77; TEMP 36.6–37.2; O2SAT 90–99
[2017-05-30] MEDS: LEVALBUTEROL 1.25MG/3ML NEB INH SCH ×4 (03:00→20:00)
[2017-05-30 07:01] LABS: BASO % 0.4 %; BASO ABS # 0.03 K/uL (0-0.2); EOS ABS # 0.07 K/uL (0-0.5); HEMATOCRIT 35.4 % (37-47); HEMOGLOBIN 11.2 g/dL (12.0-16.0); LYMPH % 27.4 %; LYMPH ABS # 1.94 K/uL (1.2-3.4); MEAN CELL VOLUME 90.5 fL (80-100); MEAN CORPUSCULAR HEMOGLOBIN 28.6 pg (25-34); MEAN CORPUSCULAR HGB CONC 31.6 g/dl (32-36); MEAN PLATELET VOLUME 9.9 fL (7.4-10.4); MONO % 10.7 %; MONO ABS # 0.76 K/uL (0.11-0.59); NEUT % 59.1 %; NEUT ABS # 4.18 K/uL (1.4-6.5); PLATELET COUNT 296 K/uL (130-400); RED CELL DISTRIBUTION WIDTH CV 14.8 % (11.5-14.5); RED CELL DISTRIBUTION WIDTH SD 48.5 fL (36.4-46.3); WHITE BLOOD COUNT 7.08 K/uL (4.8-10.8)
[2017-05-30 07:07] LABS: INR 2.8 (0.9-1.1)
[2017-05-30 07:36] LABS: CALCIUM 8.3 mg/dl (8.5-10.1); CREATININE 0.74 mg/dl (0.60-1.20)
[2017-05-30] MEDS: RISPERIDONE 0.5 MG TAB PO SCH ×2 (07:52→20:09)
[2017-05-30] MEDS: RANITIDINE HCL 150 MG TAB PO SCH (07:52)
[2017-05-30] MEDS: SERTRALINE HCL 50 MG TAB PO SCH (07:52)
[2017-05-30] MEDS: METOPROLOL SUCC 25MG EXT REL TAB PO SCH (07:52)
[2017-05-30] MEDS: PANTOprazole SOD 40 MG TAB PO SCH (07:52)
[2017-05-30] MEDS: POTASSIUM CHLORIDE 20 MEQ TABCR PO SCH ×2 (07:53→20:06)
[2017-05-30] MEDS: GUAIFENESIN 600 MG TABCR PO SCH ×2 (07:53→20:06)
[2017-05-30] MEDS: MIRABEGRON ER 25 MG TAB PO SCH (07:53)
[2017-05-30] MEDS: FUROSEMIDE INJ 40 MG in SYRINGE 0 ML IV SCH ×2 (07:53→16:38)
[2017-05-30] MEDS: ASPIRIN 81 MG ECTAB PO SCH (07:53)
--- NOTE | 2017-05-30 09:16 | Family Medicine Progress Note ---
Progress Note Date of Service May 30, 2017. Subjective Pt evaluation today including: conversation w/ patient, physical exam, chart review, lab review, review of studies, review of inpatient medication list Voiding: incontinence (chronic) Patient reports breathing much improved, nearly back to her baseline. She is keen to be discharged today. All Other Systems: Reviewed and Negative (acutely) Medications Current Inpatient Medications Medications (Trade) Dose Ordered Sig/Gabriela Route Start Time Stop Time Status Last Admin Dose Admin Acetaminophen (Tylenol Tab) 650 mg Q4H PRN PO 05/27/17 13:30 06/26/17 13:29 05/29/17 19:51 650 MG Ondansetron HCl (Zofran Inj) 4 mg Q6H PRN IV 05/27/17 13:30 06/26/17 13:29 Nitroglycerin (Nitrostat Tab) 0.4 mg UD PRN SL 05/27/17 13:30 06/26/17 13:29 Morphine Sulfate (MoRPHine SULFATE INJ) 2 mg Q30M PRN IV 05/27/17 13:30 06/10/17 13:29 Polyethylene (Miralax Powder Packet) 17 gm DAILY PRN PO 05/27/17 13:30 06/26/17 13:29 Levalbuterol (Xopenex 1.25MG/ 3ML Neb) 1.25 mg Q6R INH 05/27/17 15:00 06/26/17 14:59 05/30/17 07:18 1.25 MG Guaifenesin (Mucinex Contr Rel Tab) 600 mg Q12 PO 05/27/17 21:00 06/26/17 20:59 05/30/17 07:53 600 MG Mirabegron (Myrbetriq Er) 50 mg DAILY PO 05/28/17 09:00 06/27/17 08:59 05/30/17 07:53 50 MG Risperidone (Risperdal Tab) 0.5 mg BID PO 05/27/17 21:00 06/26/17 20:59 05/30/17 07:52 0.5 MG Sertraline HCl (Zoloft Tab) 50 mg DAILY PO 05/28/17 09:00 06/27/17 08:59 05/30/17 07:52 50 MG Warfarin Sodium (Coumadin Tab) 5 mg DAILY@1600 PO 05/27/17 16:00 3/24/18 15:59 05/29/17 17:12 5 MG Pantoprazole Sodium (Protonix Tab) 40 mg QAM PO 05/28/17 09:00 06/27/17 08:59 05/30/17 07:52 40 MG Ranitidine HCl (zANTac TAB) 150 mg DAILY PO 05/28/17 09:00 06/27/17 08:59 05/30/17 07:52 150 MG Furosemide 40 mg/ Syringe 4 ml @ 4 mls/min BID17 IV 05/27/17 17:30 06/26/17 17:29 05/30/17 07:53 4 MLS/MIN Aspirin (Ecotrin Tab) 81 mg QAM PO 05/28/17 09:00 06/27/17 08:59 05/30/17 07:53 81 MG Atorvastatin Calcium (Lipitor Tab) 40 mg HS PO 05/27/17 21:00 06/26/17 20:59 05/29/17 19:47 40 MG Potassium Chloride (Klor-Con Tab) 20 meq BID PO 05/28/17 21:00 06/27/17 20:59 05/30/17 07:53 20 MEQ Metoprolol Succinate (Toprol Xl Tab) 25 mg QAM PO 05/29/17 09:00 06/28/17 08:59 05/30/17 07:52 25 MG Objective Vital Signs Date Time Temp Pulse Resp B/P (MAP) Pulse Ox O2 Delivery O2 Flow Rate FiO2 05/30/17 07:35 36.6 60 24 143/83 (103) 93 Room Air 05/30/17 07:22 61 20 90 Room Air 05/30/17 04:26 36.9 76 18 135/79 (97) 99 Room Air 05/30/17 04:00 97 Room Air 05/30/17 00:00 97 Room Air 05/29/17 23:40 36.9 67 20 134/77 (96) 90 Room Air 05/29/17 20:10 75 20 98 Room Air 05/29/17 20:00 96 Room Air 05/29/17 19:18 36.5 66 20 123/88 (100) 96 Nasal Cannula 3.0 05/29/17 16:00 Room Air 05/29/17 15:33 36.6 64 20 109/68 (82) 93 Nasal Cannula 3.0 05/29/17 14:58 64 20 96 Nasal Cannula 3.0 05/29/17 12:00 Room Air 05/29/17 11:38 36.5 61 18 110/71 (84) 97 3.0 Physical Exam General Appearance: no apparent distress Eyes: + pertinent finding (mild left eye lid droop, pupils equal) Neck: supple, no JVD Respiratory/Chest: no respiratory distress, no accessory muscle use, + crackles (coarse crackles throughout anterior and posterior chest up to mid zone) Cardiovascular: regular rate, rhythm, no murmur Abdomen: normal bowel sounds, non tender, soft Extremities: no calf tenderness, normal capillary refill, + pedal edema (1+ bilaterally, L > R) Neurologic/Psychiatric: alert, oriented x 3, + motor weakness (left sided residual weakness from previous CVA) Laboratory Results 05/30/17 06:28 Red Blood Count 3.91, Mean Corpuscular Volume 90.5, Mean Corpuscular Hemoglobin 28.6, Mean Corpuscular Hemoglobin Concent 31.6, Mean Platelet Volume 9.9, Neutrophils (%) (Auto) 59.1, Lymphocytes (%) (Auto) 27.4, Monocytes (%) (Auto) 10.7, Eosinophils (%) (Auto) 1.0, Basophils (%) (Auto) 0.4, Neutrophils # (Auto ) 4.18, Lymphocytes # (Auto) 1.94, Monocytes # (Auto) 0.76, Eosinophils # (Auto ) 0.07, Basophils # (Auto) 0.03 05/30/17 06:28 Test 05/30/17 06:28 White Blood Count 7.08 K/uL (4.8-10.8) Red Blood Count 3.91 M/uL (4.2-5.4) Hemoglobin 11.2 g/dL (12.0-16.0) Hematocrit 35.4 % (37-47) Mean Corpuscular Volume 90.5 fL (80-100) Mean Corpuscular Hemoglobin 28.6 pg (25-34) Mean Corpuscular Hemoglobin Concent 31.6 g/dl (32-36) Platelet Count 296 K/uL (130-400) Mean Platelet Volume 9.9 fL (7.4-10.4) Neutrophils (%) (Auto) 59.1 % Lymphocytes (%) (Auto) 27.4 % Monocytes (%) (Auto) 10.7 % Eosinophils (%) (Auto) 1.0 % Basophils (%) (Auto) 0.4 % Neutrophils # (Auto) 4.18 K/uL (1.4-6.5) Lymphocytes # (Auto) 1.94 K/uL (1.2-3.4) Monocytes # (Auto) 0.76 K/uL (0.11-0.59) Eosinophils # (Auto) 0.07 K/uL (0-0.5) Basophils # (Auto) 0.03 K/uL (0-0.2) RDW Standard Deviation 48.5 fL (36.4-46.3) RDW Coefficient of Variation 14.8 % (11.5-14.5) Immature Granulocyte % (Auto) 1.4 % Immature Granulocyte # (Auto) 0.10 K/uL (0.00-0.02) Prothrombin Time 28.8 SECONDS (9.0-12.0) Prothromb Time International Ratio 2.8 (0.9-1.1) Anion Gap 5.0 mmol/L (3-11) Est Creatinine Clear Calc Drug Dose 103.9 ml/min Estimated GFR () 96.5 Estimated GFR (Non- 83.2 BUN/Creatinine Ratio 35.8 (10-20) Calcium Level 8.3 mg/dl (8.5-10.1) Magnesium Level 2.5 mg/dl (1.8-2.4) Assessment and Plan 66 year old female with hx of dCHF, HTN, depression, anxiety, and history of UGI bleed transfer from [facility] with acute on chronic respiratory failure and NSTEMI Acute Hypoxemic Respiratory Failure - diastolic heart failure, less likely pneumonia therefore d/c'd levaquin - Use flutter valve, incentive spirometry and guaifenesin for cough - Speech and language - aspiration precautions only, no change in diet Acute Diastolic CHF - Continue lasix 40mg IV tomorrow, switch to PO 40mg on discharge - Echo LVEF 50-55% - -ve 1L last 24 hours - Cardiology consultation appreciated Type 2 NSTEMI / CAD - supply/demand mismatch - Cont ASA, Atorvastatin, Metoprolol, hold off ACEi currently given good EF and lasix new medication - consider outpatient myocardial perfusion scan, patient elected for medical management at present - should follow up with cardiology on discharge Hypokalemia - secondary to lasix use - trend, replace as necessary Urinary Tract Infection - No culture taken at [facility], UA showed bacteria and large leukocyte esterase but culture was never ordered. Patient asymptomatic and received one dose of vanc and levaquin here. Pizarro cath now removed. Recommend treating if becomes symptomatic again. Hypertension - Continue metoprolol History of upper GI Bleed - stable Hgb - Tolerating Coumadin - Continue daily Pantoprazole and Ranitidine Hx of CVA - unclear exact reason for warfarin but has been on this since her previous CVA , aim 2-3 - Residual left-sided hemiparesis Depression/Anxiety - Continue Sertraline - Continue Risperidone VTE Prophylaxis - SCD Knee, MEKA Barker - Warfarin (INR therapeutic) Code Status - DNR Disposition - Transfer to med/surg - Plan return to SNF tomorrow Resident Physician Supervision Note: I interviewed and examined the patient. Discussed with Dr. Leonardo and agree with findings and plan as documented in the note. Any exceptions or clarifications are listed here: None Documented By: Quintin Shook feeling better breathing better wonders if she could go back to SNF vitals noted nad breathing unlabored faint base rales sl better than yesterday, most notably far better air entry acute on chronic CHF with type 2 ND doing better med management to continue with ongoing IV diuiresis at least through today - hopefully back to SNF by tomorrow if she shows ongoing improvement
--- NOTE | 2017-05-30 10:37 | CARDIOLOGY PROGRESS NOTE ---
DATE: 05/30/2017 TIME: 09:10 a.m. SUBJECTIVE: She feels that her breathing is nearly back to baseline. She feels much better in that regard. She denies orthopnea or PND. She denies chest pain, syncope, near syncope, or palpitations. OBJECTIVE: VITAL SIGNS: Temperature 36.6 degrees, heart rate 60 beats per minute, respiration rate 24, blood pressure 143/83 mmHg; however, blood pressure has otherwise been normotensive over the past 2 days. Oxygen saturation is 93% on room air. I's and O's negative 1 liter yesterday, weight is 123.3 kilograms. Please note her I's and O's may not be accurate as she had her Pizarro catheter removed and therefore, has been incontinent in her bed. GENERAL: No acute distress. She is alert. NECK: Mild JVD. CARDIAC EXAM: No ventricular heave. Regular. Normal S1, S2. There were no audible murmurs, rubs, or gallops. LUNGS: Coarse breath sounds and expiratory wheezing throughout all lung anand. ABDOMEN: Soft, nontender, nondistended. Normoactive bowel sounds. EXTREMITIES: 1+ bilateral lower extremity edema. No cyanosis. PSYCHIATRIC: Affect appears appropriate. MEDICATIONS: Include aspirin 81 mg daily, Lipitor 40 mg at bedtime, Lasix 40 mg IV b.i.d., metoprolol succinate 25 mg daily, Protonix 40 mg daily, potassium chloride 20 mEq p.o. b.i.d., Risperdal 0.5 mg p.o. b.i.d., Zoloft 50 mg daily, and Coumadin 5 mg daily. LABORATORY DATA: White blood cell count 7.08, hemoglobin 11.2, platelets 296. Sodium 139, potassium 4, BUN 27, creatinine 0.74, magnesium 2.5. INR is 2.8. Telemetry personally reviewed. Nonsustained atrial tachycardia, one event over the past 24 hours. Otherwise, sinus rhythm. ASSESSMENT AND PLAN: 1. Non-ST elevation myocardial infarction: She did not present with acute coronary syndrome, but rather with decompensated heart failure and also possibly pneumonia. Continue aspirin 81 mg daily and high intensity statin therapy. She prefers medical therapy. Can consider outpatient myocardial perfusion study after she improves from her current illness. 2. Acute diastolic congestive heart failure: Continue current dose of diuretics as there is no evidence of azotemic labs and she still appears to be mildly hypervolemic. Low sodium diet, strict I's and O's and daily weights recommended. 3. Shortness of breath: There was concern for pneumonia, but she also presented with acute diastolic congestive heart failure. Treatment as above. 4. Hypertension: Blood pressure has improved. Continue beta guilherme and diuretic. 5. Paroxysmal atrial tachycardia: Continue beta-guilherme. She has not had any sustained arrhythmia. 6. Dyslipidemia: Continue high intensity statin therapy. 7. Disposition: She can be transferred off of telemetry. We would recommend cardiology followup whenever she is discharged. She resides at [place] in a [facility]. If they are willing to transport her to our office, we would be happy to see her here, otherwise follow up locally. She states that she would have to discuss this with her [facility] to see where they would be able to arrange for appointment.
[2017-05-30] MEDS: WARFARIN SOD 5 MG TAB PO SCH (16:39)
[2017-05-30] MEDS: ATORVASTATIN 40 MG TAB PO SCH (20:06)
[2017-05-30] MEDS: ACETAMINOPHEN 325 MG TAB PO PRN (20:11)
[2017-05-31] MEDS: LEVALBUTEROL 1.25MG/3ML NEB INH SCH ×4 (02:00→19:25)
[2017-05-31 07:44] VITALS: PULSE 77; O2SAT 92
[2017-05-31 07:56] VITALS: BP 124/80; PULSE 72; TEMP 36.5; O2SAT 95
[2017-05-31 08:01] LABS: CALCIUM 8.4 mg/dl (8.5-10.1); CREATININE 0.81 mg/dl (0.60-1.20); POTASSIUM 4.2 mmol/L (3.5-5.1)
[2017-05-31] MEDS: PANTOprazole SOD 40 MG TAB PO SCH (08:11)
[2017-05-31] MEDS: GUAIFENESIN 600 MG TABCR PO SCH ×2 (08:11→20:48)
[2017-05-31] MEDS: RISPERIDONE 0.5 MG TAB PO SCH ×2 (08:12→20:48)
[2017-05-31] MEDS: POTASSIUM CHLORIDE 20 MEQ TABCR PO SCH ×2 (08:12→20:48)
[2017-05-31] MEDS: ASPIRIN 81 MG ECTAB PO SCH (08:12)
[2017-05-31] MEDS: MIRABEGRON ER 25 MG TAB PO SCH (08:12)
[2017-05-31] MEDS: SERTRALINE HCL 50 MG TAB PO SCH (08:12)
[2017-05-31] MEDS: METOPROLOL SUCC 25MG EXT REL TAB PO SCH (08:12)
[2017-05-31] MEDS: RANITIDINE HCL 150 MG TAB PO SCH (08:12)
[2017-05-31] MEDS ORDERED: FUROSEMIDE INJ 40 MG in SYRINGE 0 ML IV SCH (09:00)
--- NOTE | 2017-05-31 09:11 | CARDIOLOGY PROGRESS NOTE ---
DATE: 05/31/2017 TIME: 08:43 a.m. SUBJECTIVE: She feels much better. She believes that her breathing is back to baseline. She would like to go home. She denies chest pain, syncope, near syncope, or palpitations. OBJECTIVE: VITAL SIGNS: Temperature 36.5 degrees, heart rate 72 beats per minute, respiratory rate 20, blood pressure 124/80 mmHg, and oxygen saturation is 95% on room air. I's and O's are incomplete as she has been incontinent. Daily weight is pending. GENERAL: No acute distress. She is alert. NECK: No appreciable JVD. CARDIAC EXAM: No ventricular heave. Regular, normal S1 and S2. 2/6 holosystolic murmur best heard at the apex. LUNGS: Coarse breath sounds bilaterally. ABDOMEN: Soft, nontender, and nondistended. Normoactive bowel sounds. EXTREMITIES: Trace bilateral lower extremity edema. No cyanosis. PSYCHIATRIC: Affect appears appropriate. MEDICATIONS: Include aspirin 81 mg daily, Lipitor 40 mg daily, Lasix 40 mg IV twice daily and this was changed to once daily today by the primary service, metoprolol succinate 25 mg daily, Protonix 40 mg daily, potassium chloride 20 mEq p.o. b.i.d., Risperdal 0.5 mg p.o. b.i.d., and Coumadin 5 mg daily. LABORATORY DATA: Sodium 141, potassium 4.2, BUN 27, and creatinine 0.81. Chart reviewed. ASSESSMENT AND PLAN: 1. Non-ST elevation myocardial infarction: She did not have angina and did not present with acute coronary syndrome, but rather presented with acute decompensated heart failure and there was also a concern for pneumonia as she did have low grade fevers. She prefers medical therapy. Continue aspirin 81 mg daily. Continue high intensity statin therapy upon discharge. Outpatient myocardial perfusion study can be performed. 2. Acute diastolic congestive heart failure: She appears much improved. Would recommend Lasix 40 mg p.o. on discharge. We discussed the importance of a low sodium diet. Daily weights also at her senior care. She appears to be near euvolemia at this time. 3. Shortness of breath: Likely secondary to congestive heart failure. There was also a concern for pneumonia given low grade fevers. She was treated for a few days on antibiotic therapy. 4. Hypertension: Her blood pressure was elevated, but has been well controlled in the past 24 hours. Continue current regimen. 5. Paroxysmal atrial tachycardia: Continue beta guilherme. She has been asymptomatic. Atrial tachycardia was nonsustained. 6. Dyslipidemia: Continue high intensity statin therapy on discharge. 7. Disposition: She may be ready for discharge from a cardiac standpoint later today or tomorrow depending on how she does this morning. She looks much improved. She resides at the senior care in [place]. We will be happy to follow her in heart failure clinic upon discharge; however, she is concerned that they may not transport her to the [facility] for her cardiology followup. If this is the case, please arrange cardiology appointment closer to her home. This will be communicated with the primary service to ensure appropriate followup.
[2017-05-31 14:13] VITALS: PULSE 66; O2SAT 93
[2017-05-31 15:30] VITALS: BP 117/71; PULSE 70; TEMP 36.8; O2SAT 94
[2017-05-31 16:00] VITALS: O2SAT 95
[2017-05-31] MEDS: WARFARIN SOD 5 MG TAB PO SCH (16:04)
--- NOTE | 2017-05-31 16:04 | DIAGNOSTIC IMAGING REPORT ---
CHEST 2 VIEWS ROUTINE CLINICAL HISTORY: coarse breath sounds, r/o infection COMPARISON STUDY: 05/28/2017 FINDINGS: The heart is enlarged. There is diffuse elevation of the interstitium. Findings are suggestive of congestive failure although interstitial inflammatory process could appear similar. There is no lobar consolidation. There are no cystic or pleural effusions.[ IMPRESSION: Cardiomegaly and diffuse elevation of the interstitium. While likely representing congestive failure and interstitial edema, an interstitial inflammatory process could appear similar. Clinical and radiographic follow-up is recommended Electronically signed by: Jarrett Herrera M.D. 05/31/2017 4:03 PM Dictated Date/Time: 05/31/2017 4:01 PM
--- NOTE | 2017-05-31 16:28 | Family Medicine Progress Note ---
Progress Note Date of Service May 31, 2017. Subjective Pt evaluation today including: conversation w/ patient, physical exam, chart review, lab review, review of inpatient medication list Pain: No pain reported PO Intake: Tolerating PO intake Voiding: no voiding problems Ms. Pereira reports she feels well today. She does note that she has a cough, and is trying but unable to produce sputum. She states her lungs feel like they are rattling, and that this is new for her. She is eager to be discharged home. She denies chest pain, shortness of breath, fever or chills. Constitutional: No fever, No chills Respiratory: + cough, + sputum, No wheezing, No shortness of breath Cardiovascular: No chest pain, No edema Abdomen: No pain, No nausea, No vomiting All Other Systems: Reviewed and Negative Medications Current Inpatient Medications Medications (Trade) Dose Ordered Sig/Gabriela Route Start Time Stop Time Status Last Admin Dose Admin Acetaminophen (Tylenol Tab) 650 mg Q4H PRN PO 05/27/17 13:30 06/26/17 13:29 05/30/17 20:11 650 MG Ondansetron HCl (Zofran Inj) 4 mg Q6H PRN IV 05/27/17 13:30 06/26/17 13:29 Nitroglycerin (Nitrostat Tab) 0.4 mg UD PRN SL 05/27/17 13:30 06/26/17 13:29 Morphine Sulfate (MoRPHine SULFATE INJ) 2 mg Q30M PRN IV 05/27/17 13:30 06/10/17 13:29 Polyethylene (Miralax Powder Packet) 17 gm DAILY PRN PO 05/27/17 13:30 06/26/17 13:29 Levalbuterol (Xopenex 1.25MG/ 3ML Neb) 1.25 mg Q6R INH 05/27/17 15:00 06/26/17 14:59 05/31/17 14:13 1.25 MG Guaifenesin (Mucinex Contr Rel Tab) 600 mg Q12 PO 05/27/17 21:00 06/26/17 20:59 05/31/17 08:11 600 MG Mirabegron (Myrbetriq Er) 50 mg DAILY PO 05/28/17 09:00 06/27/17 08:59 05/31/17 08:12 50 MG Risperidone (Risperdal Tab) 0.5 mg BID PO 05/27/17 21:00 06/26/17 20:59 05/31/17 08:12 0.5 MG Sertraline HCl (Zoloft Tab) 50 mg DAILY PO 05/28/17 09:00 06/27/17 08:59 05/31/17 08:12 50 MG Warfarin Sodium (Coumadin Tab) 5 mg DAILY@1600 PO 05/27/17 16:00 06/26/17 15:59 05/31/17 16:04 5 MG Pantoprazole Sodium (Protonix Tab) 40 mg QAM PO 05/28/17 09:00 06/27/17 08:59 05/31/17 08:11 40 MG Ranitidine HCl (zANTac TAB) 150 mg DAILY PO 05/28/17 09:00 06/27/17 08:59 05/31/17 08:12 150 MG Aspirin (Ecotrin Tab) 81 mg QAM PO 05/28/17 09:00 06/27/17 08:59 05/31/17 08:12 81 MG Atorvastatin Calcium (Lipitor Tab) 40 mg HS PO 05/27/17 21:00 06/26/17 20:59 05/30/17 20:06 40 MG Potassium Chloride (Klor-Con Tab) 20 meq BID PO 05/28/17 21:00 06/27/17 20:59 05/31/17 08:12 20 MEQ Metoprolol Succinate (Toprol Xl Tab) 25 mg QAM PO 05/29/17 09:00 06/28/17 08:59 05/31/17 08:12 25 MG Furosemide 40 mg/ Syringe 4 ml @ 4 mls/min DAILY IV 05/31/17 09:00 06/26/17 17:29 05/31/17 09:42 4 MLS/MIN Objective Vital Signs Date Time Temp Pulse Resp B/P (MAP) Pulse Ox O2 Delivery O2 Flow Rate FiO2 05/31/17 15:30 36.8 70 20 117/71 (86) 94 Room Air 05/31/17 14:13 66 18 93 Room Air 05/31/17 08:00 Room Air 05/31/17 07:56 36.5 72 20 124/80 (95) 95 Room Air 2/26/18 07:44 77 20 92 Room Air 05/31/17 00:00 Room Air 05/30/17 21:34 37.2 71 19 104/66 (79) 90 Room Air 05/30/17 20:26 72 20 91 Room Air Physical Exam General Appearance: WD/WN, no apparent distress Respiratory/Chest: no respiratory distress, no accessory muscle use, + pertinent finding (coarse breath sounds throughout lung anand) Cardiovascular: regular rate, rhythm, no edema, no gallop, no JVD, no murmur Abdomen: non tender, soft Extremities: no pedal edema, no calf tenderness Neurologic/Psychiatric: alert, normal mood/affect Laboratory Results Last 24 Hours Test 05/31/17 07:22 Sodium Level 141 mmol/L Potassium Level 4.2 mmol/L Chloride Level 107 mmol/L Carbon Dioxide Level 28 mmol/L Anion Gap 6.0 mmol/L Blood Urea Nitrogen 27 mg/dl Creatinine 0.81 mg/dl Est Creatinine Clear Calc Drug Dose 94.9 ml/min Estimated GFR () 86.5 Estimated GFR (Non- 74.6 BUN/Creatinine Ratio 33.2 Random Glucose 92 mg/dl Calcium Level 8.4 mg/dl Assessment and Plan 66 year old female with hx of dCHF, HTN, depression, anxiety, and history of UGI bleed transfer from [facility] with acute on chronic respiratory failure and NSTEMI Acute Hypoxemic Respiratory Failure - diastolic heart failure, less likely pneumonia therefore d/c'd levaquin - negative for influenza - Use flutter valve, incentive spirometry and guaifenesin for cough - Speech and language - aspiration precautions only, no change in diet - lungs sound coarse & w/rattling today - cxr showed congestive failure and interstitial edema vs. possible interstitial inflammatory process - will treat with 60mg of IV decadron and reassess in the AM - may require pulmonary consult Acute Diastolic CHF - switch Lasix from IV to PO 40mg daily and continue on discharge - Echo LVEF 50-55% - -ve 3.5L since admission Type 2 NSTEMI / CAD - supply/demand mismatch - Cont ASA, Atorvastatin, Metoprolol, hold off ACEi currently given good EF and lasix new medication - thank you to cardiology for recommendations - close f/u in outpatient setting - possible outpatient myocardial perfusion scan, patient elected for medical management at present Hypokalemia - resolved - likely secondary to lasix use - 4.2 today - continue 20 mEq of potassium daily Urinary Tract Infection - No culture taken at [facility], UA showed bacteria and large leukocyte esterase but culture was never ordered. Patient asymptomatic and received one dose of vanc and levaquin here. Pizarro cath now removed. Recommend treating if becomes symptomatic again. Hypertension - Continue metoprolol History of upper GI Bleed - stable Hgb - Tolerating Coumadin - Continue daily Pantoprazole and Ranitidine Hx of CVA - unclear exact reason for warfarin but has been on this since her previous CVA , aim 2-3 - Residual left-sided hemiparesis Depression/Anxiety - Continue Sertraline - Continue Risperidone VTE Prophylaxis - SCD Knee, MEKA Whytee - Warfarin (INR therapeutic) Code Status - DNR Disposition - pending improvement in respiratory symptoms Resident Physician Supervision Note: I was present with the resident during the history and exam. I discussed the case with the resident and agree with the findings and plan as documented in the note. Upon my exam, patient with coarse inspiratory sounds and diffuse exp wheezing. From the patient's reports, she has no formal diagnosis of obstructive lung disease (she was not on home inhalers either). There may have been some in her resp status secondary to diuresis, although today's exam is more consistent with that of a primary lung etiology. Given today exam, I do not feel that she is ready for discharge. Agree with addition of IV steroids. Depending upon her response, will discuss pulmonary consultation tomorrow. Documented By: Stoney Randall Resident Tracking Resident Involvement: Resident Care Provided Care Provided: Adult Hospital Medicine
[2017-05-31] MEDS ORDERED: METHYLPREDNISOLONE IV 60 MG in SYRINGE 0 ML IV ONE (17:45)
[2017-05-31 19:25] VITALS: PULSE 69; O2SAT 91
[2017-05-31] MEDS: ATORVASTATIN 40 MG TAB PO SCH (20:48)
[2017-05-31] MEDS: ACETAMINOPHEN 325 MG TAB PO PRN (20:51)
[2017-06-01] VITALS (8 sets, daily range): BP systolic 109–145; BP diastolic 65–83; PULSE 65–74; TEMP 36.4–37; O2SAT 90–94
[2017-06-01] MEDS: LEVALBUTEROL 1.25MG/3ML NEB INH SCH ×4 (02:17→19:46)
[2017-06-01 07:35] LABS: BASO % 0.1 %; BASO ABS # 0.01 K/uL (0-0.2); HEMATOCRIT 37.7 % (37-47); IG# 0.15 K/uL (0.00-0.02); LYMPH % 14.8 %; LYMPH ABS # 1.48 K/uL (1.2-3.4); MEAN CELL VOLUME 89.5 fL (80-100); MEAN CORPUSCULAR HEMOGLOBIN 28.5 pg (25-34); MEAN CORPUSCULAR HGB CONC 31.8 g/dl (32-36); MEAN PLATELET VOLUME 9.9 fL (7.4-10.4); MONO % 5.7 %; MONO ABS # 0.57 K/uL (0.11-0.59); NEUT % 77.9 %; NEUT ABS # 7.76 K/uL (1.4-6.5); PLATELET COUNT 366 K/uL (130-400); RED CELL DISTRIBUTION WIDTH CV 14.3 % (11.5-14.5); RED CELL DISTRIBUTION WIDTH SD 47.1 fL (36.4-46.3); WHITE BLOOD COUNT 9.97 K/uL (4.8-10.8)
[2017-06-01 07:50] LABS: INR 3.6 (0.9-1.1)
[2017-06-01] MEDS: RANITIDINE HCL 150 MG TAB PO SCH (08:03)
[2017-06-01] MEDS: POTASSIUM CHLORIDE 20 MEQ TABCR PO SCH ×2 (08:03→20:41)
[2017-06-01] MEDS: ASPIRIN 81 MG ECTAB PO SCH (08:03)
[2017-06-01] MEDS: METOPROLOL SUCC 25MG EXT REL TAB PO SCH (08:03)
[2017-06-01] MEDS: SERTRALINE HCL 50 MG TAB PO SCH (08:03)
[2017-06-01] MEDS: RISPERIDONE 0.5 MG TAB PO SCH ×2 (08:03→20:59)
[2017-06-01] MEDS: GUAIFENESIN 600 MG TABCR PO SCH ×2 (08:03→20:41)
[2017-06-01] MEDS: MIRABEGRON ER 25 MG TAB PO SCH (08:03)
[2017-06-01] MEDS: PANTOprazole SOD 40 MG TAB PO SCH (08:03)
[2017-06-01] MEDS: FUROSEMIDE 40 MG TAB PO SCH (08:04)
[2017-06-01 08:33] LABS: CALCIUM 8.6 mg/dl (8.5-10.1); CREATININE 0.76 mg/dl (0.60-1.20); POTASSIUM 4.4 mmol/L (3.5-5.1)
[2017-06-01] MEDS ORDERED: AZITHROMYCIN IV 500 MG in DEXTROSE 5% 250ML 250 ML IV ONE (09:00)
--- NOTE | 2017-06-01 10:43 | Family Medicine Progress Note ---
Progress Note Date of Service Jun 01, 2017. Subjective Pt evaluation today including: conversation w/ patient, physical exam, chart review, lab review, review of inpatient medication list Pain: No pain reported PO Intake: Tolerating PO intake Voiding: no voiding problems Ms. Pereira reports her breathing is approximately the same today as yesterday. She remains with a cough and is unable to expectorate the sputum. She denies chest pain, fever, chills, n/v. She states she has no history of prior lung problems and was a former smoker, but smoked for less than 10 years. She has never needed to use inhalers. Constitutional: No fever, No chills Respiratory: + cough, No sputum, No wheezing Cardiovascular: No chest pain, No edema Abdomen: No pain, No nausea, No vomiting All Other Systems: Reviewed and Negative Medications Current Inpatient Medications Medications (Trade) Dose Ordered Sig/Gabriela Route Start Time Stop Time Status Last Admin Dose Admin Acetaminophen (Tylenol Tab) 650 mg Q4H PRN PO 05/27/17 13:30 06/26/17 13:29 05/31/17 20:51 650 MG Ondansetron HCl (Zofran Inj) 4 mg Q6H PRN IV 05/27/17 13:30 06/26/17 13:29 Nitroglycerin (Nitrostat Tab) 0.4 mg UD PRN SL 05/27/17 13:30 06/26/17 13:29 Morphine Sulfate (MoRPHine SULFATE INJ) 2 mg Q30M PRN IV 05/27/17 13:30 06/10/17 13:29 Polyethylene (Miralax Powder Packet) 17 gm DAILY PRN PO 05/27/17 13:30 06/26/17 13:29 Levalbuterol (Xopenex 1.25MG/ 3ML Neb) 1.25 mg Q6R INH 05/27/17 15:00 06/26/17 14:59 06/01/17 07:14 1.25 MG Guaifenesin (Mucinex Contr Rel Tab) 600 mg Q12 PO 05/27/17 21:00 06/26/17 20:59 06/01/17 08:03 600 MG Mirabegron (Myrbetriq Er) 50 mg DAILY PO 05/28/17 09:00 06/27/17 08:59 06/01/17 08:03 50 MG Risperidone (Risperdal Tab) 0.5 mg BID PO 05/27/17 21:00 06/26/17 20:59 06/01/17 08:03 0.5 MG Sertraline HCl (Zoloft Tab) 50 mg DAILY PO 05/28/17 09:00 06/27/17 08:59 06/01/17 08:03 50 MG Warfarin Sodium (Coumadin Tab) 5 mg DAILY@1600 PO 05/27/17 16:00 06/26/17 15:59 Future Hold 05/31/17 16:04 5 MG Pantoprazole Sodium (Protonix Tab) 40 mg QAM PO 05/28/17 09:00 06/27/17 08:59 06/01/17 08:03 40 MG Ranitidine HCl (zANTac TAB) 150 mg DAILY PO 05/28/17 09:00 06/27/17 08:59 06/01/17 08:03 150 MG Aspirin (Ecotrin Tab) 81 mg QAM PO 05/28/17 09:00 06/27/17 08:59 06/01/17 08:03 81 MG Atorvastatin Calcium (Lipitor Tab) 40 mg HS PO 05/27/17 21:00 06/26/17 20:59 05/31/17 20:48 40 MG Potassium Chloride (Klor-Con Tab) 20 meq BID PO 05/28/17 21:00 06/27/17 20:59 06/01/17 08:03 20 MEQ Metoprolol Succinate (Toprol Xl Tab) 25 mg QAM PO 05/29/17 09:00 06/28/17 08:59 06/01/17 08:03 25 MG Furosemide (Lasix Tab) 40 mg QAM PO 06/01/17 09:00 07/01/17 08:59 06/01/17 08:04 40 MG Azithromycin 500 mg/Dextrose 255 ml @ 125 mls/hr TODAY@0900 ONCE IV 06/01/17 09:00 06/01/17 11:02 06/01/17 09:43 125 MLS/HR Prednisone (PredniSONE TAB) 40 mg DAILY PO 06/02/17 09:00 06/04/17 08:59 Objective Vital Signs Date Time Temp Pulse Resp B/P (MAP) Pulse Ox O2 Delivery O2 Flow Rate FiO2 06/01/17 07:16 68 18 92 Room Air 06/01/17 06:54 36.4 68 20 131/80 (97) 90 Room Air 06/01/17 00:09 37.0 66 20 145/83 (103) 92 Room Air 06/01/17 00:00 Room Air 05/31/17 19:25 69 18 91 Room Air 05/31/17 16:00 95 Nasal Cannula 2.0 05/31/17 15:30 36.8 70 20 117/71 (86) 94 Room Air 05/31/17 14:13 66 18 93 Room Air Physical Exam General Appearance: WD/WN, no apparent distress Respiratory/Chest: no respiratory distress, no accessory muscle use, + rhonchi , + pertinent finding (coarse breath sounds) Cardiovascular: regular rate, rhythm, no edema Abdomen: non tender, soft Extremities: no pedal edema, no calf tenderness Laboratory Results Last 24 Hours Test 06/01/17 07:07 06/01/17 07:08 White Blood Count 9.97 K/uL Red Blood Count 4.21 M/uL Hemoglobin 12.0 g/dL Hematocrit 37.7 % Mean Corpuscular Volume 89.5 fL Mean Corpuscular Hemoglobin 28.5 pg Mean Corpuscular Hemoglobin Concent 31.8 g/dl Platelet Count 366 K/uL Mean Platelet Volume 9.9 fL Neutrophils (%) (Auto) 77.9 % Lymphocytes (%) (Auto) 14.8 % Monocytes (%) (Auto) 5.7 % Eosinophils (%) (Auto) 0.0 % Basophils (%) (Auto) 0.1 % Neutrophils # (Auto) 7.76 K/uL Lymphocytes # (Auto) 1.48 K/uL Monocytes # (Auto) 0.57 K/uL Eosinophils # (Auto) 0.00 K/uL Basophils # (Auto) 0.01 K/uL RDW Standard Deviation 47.1 fL RDW Coefficient of Variation 14.3 % Immature Granulocyte % (Auto) 1.5 % Immature Granulocyte # (Auto) 0.15 K/uL Prothrombin Time 36.4 SECONDS Prothromb Time International Ratio 3.6 Sodium Level 138 mmol/L Potassium Level 4.4 mmol/L Chloride Level 107 mmol/L Carbon Dioxide Level 26 mmol/L Anion Gap 5.0 mmol/L Blood Urea Nitrogen 30 mg/dl Creatinine 0.76 mg/dl Est Creatinine Clear Calc Drug Dose 101.1 ml/min Estimated GFR () 93.4 Estimated GFR (Non- 80.6 BUN/Creatinine Ratio 39.3 Random Glucose 118 mg/dl Calcium Level 8.6 mg/dl Assessment and Plan 66 year old female with hx of dCHF, HTN, depression, anxiety, and history of UGI bleed transfer from [facility] with acute on chronic respiratory failure and NSTEMI Acute Hypoxemic Respiratory Failure Secondary to Diastolic CHF - negative for influenza - Speech and language - aspiration precautions only, no change in diet - lungs sound coarse - slightly improved from yesterday - cxr showed congestive failure and interstitial edema vs. possible interstitial inflammatory process - 60mg of IV decadron given yesterday, transitioned to 40mg oral prednisone - 500mg of azithromycin given today - will transition to 250mg oral tomorrow - day 04/09 - pulmonary consulted, thank you for recommendations --> continue prednisone, furosemide and reflux meds --> follow up chest x-ray in 2 weeks to ensure interstitial inflammation has resolved - Use flutter valve, incentive spirometry and guaifenesin for cough Acute Diastolic CHF - Lasix PO 40mg daily and continue on discharge - Echo LVEF 50-55% - -ve 3.1L since admission Type 2 NSTEMI / CAD - supply/demand mismatch - Cont ASA, Atorvastatin, Metoprolol, hold off ACEi currently given good EF and lasix new medication - thank you to cardiology for recommendations - close f/u in outpatient setting - possible outpatient myocardial perfusion scan, patient elected for medical management at present Hypokalemia - resolved - likely secondary to lasix use - 4.4 today - continue 20 mEq of potassium daily Urinary Tract Infection - No culture taken at [facility], UA showed bacteria and large leukocyte esterase but culture was never ordered. Patient asymptomatic and received one dose of vanc and levaquin here. Pizarro cath now removed. Recommend treating if becomes symptomatic again. Hypertension - Continue metoprolol History of upper GI Bleed - stable Hgb - Tolerating Coumadin - Continue daily Pantoprazole and Ranitidine Hx of CVA - unclear exact reason for warfarin but has been on this since her previous CVA , aim 2-3 - INR 3.6 today, hold warfarin today and restart tomorrow. Recheck INR tomorrow - Residual left-sided hemiparesis Depression/Anxiety - Continue Sertraline - Continue Risperidone VTE Prophylaxis - SCD Knee, MEKA Barker - Warfarin (INR therapeutic) Code Status - DNR Disposition - anticipate d/c tomorrow Resident Physician Supervision Note: I interviewed and examined the patient. Discussed with the resident and agree with findings and plan as documented in the note. Any exceptions or clarifications are listed here: Upon my exam this afternoon, the patient noted improved breathing compared to yesterday. She is upset she cannot return to the sn[facility] today, but understanding of the need to remain in the hospital until her pulmonary status improves. Upon my exam, she has scattered rhonchi thru all posterior anand, although less compared to yesterday. The exp wheezing noted yesterday has resolved. PLAN 1) Pulmonology consult appreciated. Outpatient follow up will be needed. 2) Complete five day course of Zithromax. 3) Continue Prednisone 40 mg daily. 4) Continue PO Lasix; Monitor BMP/ I/Os. 5) Monitor INR. Documented By: Stoney Randall Resident Tracking Resident Involvement: Resident Care Provided Care Provided: Adult Hospital Medicine
--- NOTE | 2017-06-01 13:56 | PULMONARY CONSULTATION ---
DATE OF CONSULTATION: 06/01/2017 TIME: 12:40 p.m. HISTORY OF PRESENT ILLNESS: The patient was seen in room #263, bed 1. She is a 66-year-old female, who was admitted here on May 27. She was transferred from [facility]. She resides at [facility]. This is because she has previously had strokes. Approximately May 24, she began with a cough and shortness of breath. A Z-Paul was prescribed, but without benefit. She had a low grade fever of 100. Subsequently, she went to [facility]. She had an oxygen saturation of 80%. She was fatigued. They thought she may have pneumonia. Her troponins were elevated apparently. It was thought she might have a non-STEMI. She was transferred to [facility]. The patient is still coughing, but she feels it is less. She did begin to expectorate some phlegm yesterday. It is yellow in color. She has not coughed up any blood. She does complain of nasal congestion. She denies any chills, fevers or sweats. She has not had chest pains. She has had some shortness of breath when she tries to move a bit. The patient has not been ambulating at all because she is not able to do with her stroke. She states that at the prison, they get her out of bed with a Leticia lift. That has not been happening here. When she was first admitted, it was thought that she had probable diastolic CHF. She has been getting treated for that. She still had persistent chest congestion. Also, her chest x-rays have been abnormal. The first x-ray on the showed what appeared to be interstitial edema and likely secondary to pulmonary edema. A followup x-ray on the showed slight improvement. A subsequent followup on the again showed cardiomegaly and diffuse increased interstitial prominence. An interstitial inflammatory process could appear similar as reported by the radiologist. The patient expressed marked frustration that she has not headed back to the prison yet. PAST PULMONARY HISTORY: She denies having had any lung trouble in the past at all except for the fact she used to get frequent bronchitis when she smoked. She quit smoking 8 years ago and she previously smoked a half a pack per day or more for 40 years. PAST SURGICAL HISTORY: 1. Appendectomy. 2. Hysterectomy. PAST MEDICAL HISTORY: 1. Hypertension. 2. Hypothyroidism. 3. Obesity. 4. Prior CVA x2. 5. Reflux. 6. Gastrointestinal bleed in April. 7. Anxiety. 8. Depression. 9. Childbirth x3. SOCIAL HISTORY: Tobacco, one half pack per day for 40 years as noted. ETOH -- None. ALLERGIES: No known allergies. FAMILY HISTORY: Mother in her 80s, had diabetes and heart disease. The patient could not tell me what her father from. CURRENT MEDICATIONS: 1. Prednisone 40 mg daily. 2. Furosemide 40 mg daily. 3. Metoprolol 25 mg daily. 4. Potassium 20 mEq b.i.d. 5. Myrbetriq 50 mg daily. 6. Zoloft 50 mg daily. 7. Pantoprazole 40 mg daily. 8. Ranitidine 150 mg daily. 9. Aspirin 81 mg daily. 10. Guaifenesin 600 mg q. 12 hours. 11. Risperdal 0.5 b.i.d. 12. Atorvastatin 40 mg at bedtime. 13. Levalbuterol 1.25 q. 6 hours. 14. Zofran 4 mg q. 6 hours p.r.n. 15. Nitro p.r.n. 16. Morphine p.r.n. 17. MiraLax p.r.n. REVIEW OF SYSTEMS: The patient does complain of nasal congestion. She complains of constipation. She complains of immobility. The remainder is negative except as noted above. PHYSICAL EXAMINATION: GENERAL: The patient is a 66-year-old female who was cooperative, alert and oriented. She did not appear in distress. She coughed occasionally. VITAL SIGNS: Temperature is 36.4. Her maximum temperature since admission is 37.2 and that was 2 days ago. HEENT: Pupils were reactive. It would appear that she has had cataract surgery. Nares revealed a deviated septum. There was mild congestion. Mouth exam was unremarkable. NECK: Palpation of the neck reveals no lymph nodes. HEART: The cardiac rate is 68 per minute. The rhythm was regular. Blood pressure 131/80. LUNGS: Auscultation of the lung anand revealed scattered rhonchi bilaterally. Respiratory rate was 18. Oxygen saturation on room air was 92%. The rhonchi were best heard posteriorly. ABDOMEN: Obese. It was soft and nontender. EXTREMITIES: Reveal the left leg moves very little. The right leg moves some, but does not seem exactly normal either. The left foot appears to have what may be a foot drop. The patient did state that they were planning on doing some type of tendon surgery on that foot in the near future. LABORATORY DATA: The highest white blood cell count since admission has been today at 9.97. Hemoglobin is 12. Platelets are 366,000. INR today is 3.6. Electrolytes show sodium 138, potassium 4.4, chloride 107, and bicarbonate 26. BUN was 30 with a creatinine of 0.76. The ProBNP on admission was 3952. Troponins were elevated at 0.778. Cholesterol was 120. Blood cultures were negative. IMPRESSIONS: 1. Acute bronchitis. 2. Diastolic congestive heart failure. 3. Old cerebrovascular accident. 4. Abnormal chest x-ray -- questionable congestive heart failure versus interstitial lung disease. COMMENTS: The patient is still coughing some. She has modest rhonchi. She has not had any significant hypoxia. The lowest saturation recorded in the last 24 hours was 90% on room air. The major issue is that the patient should have a followup x-ray in about 2 weeks to make sure that the interstitial process has resolved or significantly improved. She is frustrated that she cannot get out of bed. Nursing tells me she is incontinent of urine about every 45 minutes. This may improve now that she is no longer on the IV furosemide. RECOMMENDATIONS: 1. Agree with your current treatment, which includes prednisone 40 mg daily, furosemide 40 mg daily orally, her usual reflux medicines, and the neb treatments with levalbuterol. I believe these things would all be advised for a period of time after she is transferred back to the prison. 2. Suggest doing an x-ray in about 2 weeks to make sure the interstitial process has significantly improved.
[2017-06-01] MEDS: ACETAMINOPHEN 325 MG TAB PO PRN (20:40)
[2017-06-01] MEDS: ATORVASTATIN 40 MG TAB PO SCH (20:41)
[2017-06-02] VITALS (7 sets, daily range): BP systolic 138–152; BP diastolic 76–82; PULSE 67–77; TEMP 36.5–36.6; O2SAT 90–93
[2017-06-02] MEDS: LEVALBUTEROL 1.25MG/3ML NEB INH SCH ×4 (01:29→19:22)
[2017-06-02 05:38] LABS: INR 3.2 (0.9-1.1)
[2017-06-02 05:54] LABS: CALCIUM 8.6 mg/dl (8.5-10.1); CREATININE 0.79 mg/dl (0.60-1.20); POTASSIUM 4.2 mmol/L (3.5-5.1)
[2017-06-02] MEDS ORDERED: NTRSLP4 SL (07:31)
[2017-06-02] MEDS ORDERED: TPRSR25 PO (07:31)
[2017-06-02] MEDS ORDERED: MCRK20 PO (07:31)
[2017-06-02] MEDS ORDERED: LPT40 PO (07:31)
[2017-06-02] MEDS ORDERED: PRD20 PO ×3 (07:31→11:51)
[2017-06-02] MEDS ORDERED: AZIT-57 PO (07:31)
[2017-06-02] MEDS ORDERED: ASPEC81 PO (07:31)
[2017-06-02] MEDS ORDERED: LSX40 PO (07:31)
[2017-06-02] MEDS ORDERED: AZITHROMYCIN 250 MG TAB PO SCH (09:00)
--- NOTE | 2017-06-02 09:06 | CARDIOLOGY PROGRESS NOTE ---
DATE: 06/02/2017 TIME: 7:50 a.m. SUBJECTIVE: She denies shortness of breath, chest pain, syncope, near syncope, or palpitations. She still has a cough, but is unable to bring up sputum. She has been seen by pulmonology and was diagnosed with acute bronchitis and agreed with prednisone therapy. She is hoping to be discharged soon. OBJECTIVE: VITAL SIGNS: Temperature 36.6 degrees, heart rate 72 beats per minute, respiration rate 16, blood pressure 109/65 mmHg, oxygen saturation 93% on room air. I's and O's are incomplete due to urinary incontinence. GENERAL: No acute distress. She is alert. NECK: No appreciable JVD. CARDIAC EXAM: No ventricular heave. Regular, normal S1 and S2. No ectopy. A 2/6 holosystolic murmur best heard at the apex. LUNGS: Rhonchi still present, but improved bilaterally. ABDOMEN: Soft, nontender, nondistended. Normoactive bowel sounds. EXTREMITIES: Trace bilateral lower extremity edema. No cyanosis. PSYCHIATRIC: Affect appears appropriate. MEDICATIONS: Include aspirin 81 mg daily, atorvastatin 40 mg at bedtime, azithromycin 250 mg daily, Lasix 40 mg p.o. daily, metoprolol succinate 25 mg daily, Protonix 40 mg daily, potassium chloride 20 mEq p.o. b.i.d., prednisone 40 mg daily, risperidone 0.5 mg b.i.d., Zoloft 50 mg daily. LABORATORY DATA: Sodium 138, potassium 4.2, BUN 34, creatinine 0.79. Chart reviewed. ASSESSMENT AND PLAN: 1. Non-ST elevation myocardial infarction: She was initially transferred here for myocardial infarction, but did not present with acute coronary syndrome. Her elevated troponins are likely secondary to decompensated congestive heart failure and acute bronchitis/pneumonia. There was initial concern for pneumonia given elevated temperatures, but she has not been diagnosed with acute bronchitis. Antibiotic therapy has been resumed. She prefers medical therapy. Myocardial perfusion study can be performed as an outpatient when she fully recovers from her other acute illnesses. 2. Acute diastolic congestive heart failure: Much improved from a volume standpoint. She appears euvolemic on exam. Continue Lasix 40 mg p.o. daily. Low-sodium diet and daily weights recommended. 3. Shortness of breath: Likely secondary to congestive heart failure and also acute bronchitis. Her symptoms overall have improved. 4. Hypertension: Blood pressure adequately controlled. Continue current regimen. 5. Paroxysmal atrial tachycardia: Continue beta-guilherme. She is asymptomatic. She had nonsustained atrial tachycardia on telemetry during this hospitalization. 6. Dyslipidemia: Continue high-intensity statin therapy on discharge. 7. Disposition: It has been communicated with the primary service that we would be happy to follow with her here in cardiology office to help manage her diuretics and arrange further evaluation if necessary from an ischemic standpoint. The patient herself believes that she may need to follow up in the [facility]. Once it has been determined exactly where she will be discharged to, please check with that facility to see if they would transfer her to the [facility] or prefer a local followup as she has been residing in the [facility]. Cardiology will sign off at this time. Please call for any other questions or concerns.
[2017-06-02] MEDS: RANITIDINE HCL 150 MG TAB PO SCH (09:28)
[2017-06-02] MEDS: POTASSIUM CHLORIDE 20 MEQ TABCR PO SCH ×2 (09:28→20:23)
[2017-06-02] MEDS: METOPROLOL SUCC 25MG EXT REL TAB PO SCH (09:28)
[2017-06-02] MEDS: PANTOprazole SOD 40 MG TAB PO SCH (09:28)
[2017-06-02] MEDS: GUAIFENESIN 600 MG TABCR PO SCH ×2 (09:28→20:24)
[2017-06-02] MEDS: MIRABEGRON ER 25 MG TAB PO SCH (09:28)
[2017-06-02] MEDS: ASPIRIN 81 MG ECTAB PO SCH (09:28)
[2017-06-02] MEDS: RISPERIDONE 0.5 MG TAB PO SCH ×2 (09:28→20:23)
[2017-06-02] MEDS: SERTRALINE HCL 50 MG TAB PO SCH (09:29)
[2017-06-02] MEDS: FUROSEMIDE 40 MG TAB PO SCH (09:29)
--- NOTE | 2017-06-02 10:21 | Discharge Instructions ---
Discharge Instructions Date of Service Jun 02, 2017. Admission Reason for Admission: Nstemi,Pneumonia,Acute Respiratory Failure Discharge Discharge Diagnosis / Problem: Acute Hypoxemic Respiratory Failure w/diastolic CHF, NSTEMI Discharge Goals Goal(s): Improve function, Increase independence, Improve disease control Activity Recommendations Activity Level: Bedrest . Additional Information Patient informed of condition: Yes Advance Directives: Yes DNR: Yes Level of Care: Skilled Communicable Disease: No Prognosis: Stable Oxygen at (LPM): None Pizarro Catheter: No Instructions / Follow-Up Instructions / Follow-Up Ms. Pereira is a 66 year old female with hx of dCHF, HTN, depression, anxiety, and history of UGI bleed transfer from [facility] with acute on chronic respiratory failure and NSTEMI 1) Requires cardiology follow up 2) HOLD warfarin today and restart tomorrow. Recommend INR check on Wednesday 3) Azithromycin for 3 more days 4) Follow up with pulmonary (Caleb Garg) in 2-3 weeks for a repeat chest x-ray 5) Continue 40mg of prednisone daily until pulmonary follow up Type 2 NSTEMI / CAD - supply/demand mismatch in setting of decompensated congestive heart failure and acute bronchitis/pneumonia - started on ASA, Atorvastatin, Metoprolol, and lasix - she was seen by Dr. Alfonso with [facility] - recommend close follow-up with his office for a possible outpatient myocardial perfusion scan. Patient has elected for medical management at present Acute Hypoxemic Respiratory Failure Secondary to Diastolic CHF - continue Lasix PO 40mg daily - Echo LVEF 50-55% - -ve 3.1L since admission - recommend low sodium diet and daily weights Interstitial Inflammation on CXR - negative for influenza - pt had scattered rhonchi and wheezing - cxr showed congestive failure and interstitial edema vs. possible interstitial inflammatory process -> acute bronchitis vs. atypical pneumonia - treated with 60mg of IV decadron, transitioned to 40mg oral prednisone ( continue until seen by pulmonary in 2-3 weeks) - z-pack started - continue for 3 more days for a total of 5 days - She requires follow up in 2 weeks with Caleb Garg for a repeat cxr to ensure the interstitial inflammation has resolved (she was seen by Dr. Pena here) Aspiration Precautions - patient assessed by speech and language - their recommendations include: -> Position pt fully upright for all PO, eat at a slow rate, alternate between solids and liquids, refrain from eating when short of breath or experiencing a coughing episode Hypokalemia - likely secondary to lasix use - 4.2 on d/c - continue 20 mEq of potassium daily Urinary Tract Infection - No culture taken at [facility], UA showed bacteria and large leukocyte esterase but culture was never ordered. Patient asymptomatic and received one dose of vanc and levaquin here. Pizarro cath now removed. Recommend treating if becomes symptomatic again. Hypertension - Continue metoprolol History of upper GI Bleed - stable Hgb - Tolerating Coumadin - Continue daily Ranitidine - increase omeprazole from 20mg daily to 40mg daily while on prednisone Hx of CVA - unclear exact reason for warfarin but has been on this since her previous CVA , aim 2-3 - INR 3.2 today, hold warfarin today and restart tomorrow. Recommend recheck of INR on Wednesday. - Residual left-sided hemiparesis Depression/Anxiety - Continue Sertraline - Continue Risperidone Current Hospital Diet Patient's current hospital diet: AHA Diet (Heart Healthy) Discharge Diet Recommended Diet: AHA Diet (Heart Healthy) Pending Studies Studies pending at discharge: no Laboratory Results Hemoglobin A1c Test 05/28/17 06:14 Range/Units Estimated Average Glucose 120 mg/dl Hemoglobin A1c 5.8 H 4.5-5.6 % Lipid Panel Test 05/28/17 06:14 Range/Units Triglycerides Level 61 0-150 mg/dl Cholesterol Level 120 0-200 mg/dl HDL Cholesterol 42 mg/dl Cholesterol/HDL Ratio 2.9 LDL Cholesterol, Calculated 66 mg/dl Medical Emergencies . Who to Call and When: Medical Emergencies: If at any time you feel your situation is an emergency, please call 911 immediately. . Non-Emergent Contact Non-Emergency issues call your: Primary Care Provider . . "Provider Documentation" section prepared by Magy Varner. . Core Measure Problem Core Measures: None
--- NOTE | 2017-06-02 10:28 | Discharge Summary ---
Discharge Summary Date of Service Jun 02, 2017. Discharge Summary Admission Date: May 27, 2017 at 13:16 Discharge Date: Jun 02, 2017 Discharge Disposition: senior living facility Principal Diagnosis: Acute Hypoxemic Respiratory Failure w/decompensated CHF & NSTEMI Problems/Secondary Diagnoses: 1) Diastolic CHF 2) Hypertension 3) Hx of upper GI bleed 4) Hx of CVA 5) Depression/anxiety Immunizations: Have You Had Influenza Vaccine: N/A History of Tetanus Vaccine?: No History of Pneumococcal: No History of Hepatitis B Vaccine: No Procedures: CHEST 2 VIEWS ROUTINE CLINICAL HISTORY: coarse breath sounds, r/o infection COMPARISON STUDY: 05/28/2017 FINDINGS: The heart is enlarged. There is diffuse elevation of the interstitium. Findings are suggestive of congestive failure although interstitial inflammatory process could appear similar. There is no lobar consolidation. There are no cystic or pleural effusions.[ IMPRESSION: Cardiomegaly and diffuse elevation of the interstitium. While likely representing congestive failure and interstitial edema, an interstitial inflammatory process could appear similar. Clinical and radiographic follow-up is recommended Consultations: Cardiology Pulmonary Medication Reconciliation New Medications: Aspirin (Aspirin EC Low Dose) 81 Mg Ectab 81 MG PO QAM for 30 Days Atorvastatin (Lipitor) 40 Mg Tab 40 MG PO HS for 30 Days, TAB Azithromycin (Azithromycin) 250 Mg Tab 250 MG PO QAM for 3 Days, #3 TAB Furosemide (Furosemide) 40 Mg Tab 40 MG PO QAM for 30 Days, #30 TAB Metoprolol Succinate (Metoprolol Succinate ER) 25 Mg Tabcr 25 MG PO QAM for 30 Days Potassium Chloride (Klor-Con M20) 20 Meq Tabcr 20 MEQ PO BID for 30 Days Prednisone (Prednisone) 20 Mg Tab 40 MG PO DAILY for 3 Days, #6 TAB Continued Medications: Artificial Tears Oph Oint (Lacri-Lube Sop Oph Oint) Oint 1 DROP OP TID, #1 % TO THE AFFECTED EYE UP TO QID PRN Chlorhexidine Gluconate (Mouth (Periogard) 0.12 % Gloria 30 ML PO HS, #473 ML Magnesium Hydroxide (Milk Of Magnesia) 30 Ml Susp 30 ML PO, ML Mirabegron (Myrbetriq Er) 50 Mg Tab 50 MG PO DAILY Omeprazole (Prilosec) 20 Mg Cap 20 MG OR DAILY Ranitidine Hcl (Ranitidine Hcl) 150 Mg Cap 1 CAP PO DAILY for 30 Days, #30 CAP 5 Refills Risperidone (Risperidone) 0.5 Mg Tab 0.5 MG PO BID, #60 Sertraline (Zoloft) 50 Mg Tab 1 TAB PO DAILY for 30 Days, #30 TAB 2 Refills Tamsulosin Hcl (Flomax) 0.4 Mg Cap 0.4 MG PO, CAP Warfarin Sodium (Coumadin) 5 Mg Tab 5 MG PO DAILY, #1 TAB cont change home dose of 5 mg, f/u daily PT/INR and adjust dose as needed Discontinued Medications: Azithromycin (Zithromax) 250 Mg Tab 250 MG PO DAILY, #4 TAB Ciprofloxacin (Cipro) 500 Mg Tab 500 MG PO BID for 5 Days, TAB Furosemide (Lasix) 20 Mg Tab 1 TAB PO DAILY PRN for edema for 30 Days, #30 TAB 1 Refill Simvastatin (Zocor) 20 Mg Tab 20 MG PO QPM, 0 Refills Discharge Exam Ms. Pereira reports she feels better today. She states her breathing has improved and she remains with a cough. She reports she is still unable to produce sputum. She denies chest pain, fever, chills, n/v, SOB. She is eager for d/c. Review of Systems: Constitutional: No fever, No chills Respiratory: + cough, No sputum, No shortness of breath Cardiovascular: No chest pain Abdomen: No pain, No nausea, No vomiting Physical Exam: General Appearance: WD/WN, no apparent distress Respiratory/Chest: no respiratory distress, no accessory muscle use, + rhonchi (mild scattered rhonchi throughout lungs) Cardiovascular: regular rate, rhythm, no edema, no gallop Abdomen / GI: non tender, soft Extremities: no calf tenderness Hospital Course Ms. Pereira is a 66 year old female with hx of dCHF, HTN, depression, anxiety, and history of UGI bleed transfer from [facility] with acute on chronic respiratory failure and NSTEMI Type 2 NSTEMI / CAD - supply/demand mismatch in setting of decompensated congestive heart failure and acute bronchitis/pneumonia - started on ASA, Atorvastatin, Metoprolol, and lasix - she was seen by Dr. Alfonso with [facility] - recommend close follow-up with his office for a possible outpatient myocardial perfusion scan. Patient has elected for medical management at present Acute Hypoxemic Respiratory Failure Secondary to Diastolic CHF - continue Lasix PO 40mg daily - Echo LVEF 50-55% - -ve 3.1L since admission - recommend low sodium diet and daily weights Interstitial Inflammation on CXR - negative for influenza - pt had scattered rhonchi and wheezing - cxr showed congestive failure and interstitial edema vs. possible interstitial inflammatory process -> acute bronchitis vs. atypical pneumonia - treated with 60mg of IV decadron, transitioned to 40mg oral prednisone ( continue until seen by pulmonary in 2-3 weeks) - z-pack started - continue for 3 more days for a total of 5 days - She requires follow up in 2 weeks with Caleb Garg for a repeat cxr to ensure the interstitial inflammation has resolved (she was seen by Dr. Pena here) Aspiration Precautions - patient assessed by speech and language - their recommendations include: -> Position pt fully upright for all PO, eat at a slow rate, alternate between solids and liquids, refrain from eating when short of breath or experiencing a coughing episode Hypokalemia - likely secondary to lasix use - 4.2 on d/c - continue 20 mEq of potassium daily Urinary Tract Infection - No culture taken at [facility], showed bacteria and large leukocyte esterase but culture was never ordered. Patient asymptomatic and received one dose of vanc and levaquin here. Pizarro cath now removed. Recommend treating if becomes symptomatic again. Hypertension - Continue metoprolol History of upper GI Bleed - stable Hgb - Tolerating Coumadin - Continue daily Ranitidine - increase omeprazole from 20mg daily to 40mg daily while on prednisone Hx of CVA - unclear exact reason for warfarin but has been on this since her previous CVA , aim 2-3 - INR 3.2 today, hold warfarin today and restart tomorrow. Recommend recheck of INR on Wednesday. - Residual left-sided hemiparesis Depression/Anxiety - Continue Sertraline - Continue Risperidone Resident Physician Supervision Note: I was present with the resident during the history and exam. I discussed the case with the resident and agree with the findings and plan as documented in the note. Upon lung exam, the scattered rhonchi were less compared to yesterday ; there was minimal end exp wheezing. I also discussed the case with pulmonology , who will be able to see the patient in follow up in 2-3 weeks. Complete course of Zithromax and remain on prednisone 40 mg daily until seen by pulmonology. She is also scheduled for follow up with cardiology. Documented By: Stoney Randall Total Time Spent: Greater than 30 minutes This includes examination of the patient, discharge planning, medication reconciliation, and communication with other providers. Discharge Instructions Please refer to the electronic Patient Visit Report (Discharge Instructions) for additional information. Resident Tracking Resident Involvement: Resident Care Provided Care Provided: Adult [facility] Medicine
--- NOTE | 2017-06-02 11:22 | Consultant Recommendations ---
Senior Inspector Recommendations Date of Service Jun 02, 2017. Senior Inspector Recommendations 1. Continue 40 mg of prednisone daily until seen in the office. 2. Chest xray to be done in 2-3 weeks. 3. Followup in [place] [facility] in 2-3 weeks.
--- NOTE | 2017-06-02 11:43 | PULMONARY PROGRESS NOTE ---
DATE: 06/02/2017 PROBLEM LIST: Includes acute bronchitis, diastolic congestive heart failure, old CVA, abnormal chest x-ray, question CHF versus interstitial lung disease. SUBJECTIVE: The patient reports that she feels okay, feels better than when she was admitted, states that overall her breathing has improved somewhat. She is currently not having any increased cough or congestion. She does have some chest congestion and tightness, which is typical for her. She states that she still is wheezing some. She still is on oxygen. She denies any pleuritic chest pain. She denies any cardiac chest pain. She denies any GI difficulties. No nausea or vomiting. Did specifically ask her if she had any problems with eating or drinking and having cough or choking when she did that, she responded no. OBJECTIVE: GENERAL: The patient is a 66-year-old female lying in bed, in no acute distress. She is alert and oriented x3. Mood is good. Affect is good. VITAL SIGNS: Temp 36.5, pulse 72, respirations 20, blood pressure is 152/82, pulse ox 92% on room air. HEENT: Normocephalic, atraumatic. Pupils equal, round and reactive to light and accommodation. Extraocular movements are intact. NECK: Supple. No mass, no adenopathy, no bruit. CHEST: Scattered rhonchi throughout. No wheeze noted. No rale noted. CARDIOVASCULAR: Difficult to auscultate due to lung sounds. I did not appreciate any murmurs, what I auscultated does sound regular. ABDOMEN: Obese, soft, nontender. EXTREMITIES: No erythema, trace edema, no tenderness. DATA: INR 3.2. No new imaging. IMPRESSION AND PLAN: Acute bronchitis in the setting of some chronic chest x-ray changes. At this point, I would recommend to continue 40 mg of prednisone daily until seen in the office. I would like to see her in [place] in a 2-3 week time. At that time, she will need repeat chest x-ray. She is to finish out antibiotics as specified by hospitalist team.
[2017-06-02] MEDS ORDERED: OMEP20CA9 OR (11:51)
[2017-06-02] MEDS: ATORVASTATIN 40 MG TAB PO SCH (20:24)
[2017-06-02] MEDS: ACETAMINOPHEN 325 MG TAB PO PRN (20:24)
== END 2017-06-02 21:25 | DRG 280 ==
LOC: C.2T 13:16 → C.2E 13:22 → C.MS2W 05-30 11:59 → ENRESERV 05-30 12:21 → CANRESERV 05-30 12:21 → ENRESERV 05-30 12:58
PROVIDERS: ADMIT Hospitalist; ATTEND Family Medicine
DX: I21.A1 Myocardial infarction type 2 (principal); I50.33 Acute on chronic diastolic (congestive) heart failure; J96.01 Acute respiratory failure with hypoxia; J18.9 Pneumonia, unspecified organism; N39.0 Urinary tract infection, site not specified; I69.354 Hemiplegia and hemiparesis following cerebral infarction affecting left non-dominant side; J20.9 Acute bronchitis, unspecified; E87.6 Hypokalemia; I11.0 Hypertensive heart disease with heart failure; I25.10 Atherosclerotic heart disease of native coronary artery without angina pectoris; I48.91 Unspecified atrial fibrillation; E78.5 Hyperlipidemia, unspecified; K21.9 Gastro-esophageal reflux disease without esophagitis; E03.9 Hypothyroidism, unspecified; F41.1 Generalized anxiety disorder; F32.9 Major depressive disorder, single episode, unspecified; E66.01 Morbid (severe) obesity due to excess calories; Z66 Do not resuscitate; Z79.899 Other long term (current) drug therapy; Z79.01 Long term (current) use of anticoagulants; Z87.19 Personal history of other diseases of the digestive system; Z68.39 Body mass index [BMI] 39.0-39.9, adult; Z87.891 Personal history of nicotine dependence; Z83.3 Family history of diabetes mellitus